=== PATIENT | female | born 1980 | race Caucasian/White ===

== ENCOUNTER 2018-04-21 13:55 | Inpatient (IN) | payer OTHER ==
[2018-04-21] MEDS ORDERED: SODIUM CHLORIDE 0.9% 1,000 ML IV STA ×3 (15:01→16:00)
[2018-04-21] MEDS ORDERED: HYDROCORTISONE SUCCINATE 100 MG/2 ML VIAL IV STA (15:13)
--- NOTE | 2018-04-21 15:20 | ED ---
Recheck HPI - General Source: patient, RN notes reviewed, old records reviewed Mode of arrival: wheelchair Limitations: no limitations <Alisha Valverde - Last Filed: 04/21/18 16:24> <Cecil Jim - Last Filed: 04/21/18 19:58> - General Chief Complaint: Recheck/Abnormal Lab/Rx Stated Complaint: Ware's episode Time Seen by Provider: 04/21/18 14:42 - History of Present Illness Initial Comments: 37-year-old female process return today with chief complaint of general illness. 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 Patient reports that she's been having hot and cold episodes. She denies any other new complaints including cough congestion and URI symptoms. She reports that she typically does with constipation to some stool softeners and now has had some recent diarrhea. She denies abdominal pain. Family states she's been acting more confused. She's been acting lethargic. She does report that she occasionally will miss her medication but missed one dose in the past few days. (Alisha Valverde) - Related Data Home Medications Medication Instructions Recorded Confirmed busPIRone HCl [Buspar] 20 mg PO TID 10/25/15 04/21/18 Fludrocortisone [Florinef] 0.3 mg PO DAILY 04/21/18 04/21/18 Hydrocortisone [Cortef] 10 mg PO BID 04/21/18 04/21/18 Levothyroxine Sodium [Synthroid] 125 mcg PO DAILY 04/21/18 04/21/18 Sodium Chloride Tab 1 gm PO TID PRN 04/21/18 04/21/18 Allergies Allergy/AdvReac Type Severity Reaction Status Date / Time sulfamethoxazole AdvReac Rash/Hives Verified 04/21/18 15:02 [From Bactrim] trimethoprim [From Bactrim] AdvReac Rash/Hives Verified 04/21/18 15:02 Review of Systems ROS Other: All systems not noted in ROS Statement are negative. <Alisha Valverde - Last Filed: 04/21/18 16:24> ROS Other: All systems not noted in ROS Statement are negative. <Cecil Jim - Last Filed: 04/21/18 19:58> ROS Statement: Those systems with pertinent positive or pertinent negative responses have been documented in the HPI. Past Medical History Past Medical History: Thyroid Disorder Additional Past Medical History / Comment(s): hypothyroidism, addisons disease, hypotension History of Any Multi-Drug Resistant Organisms: None Reported Past Surgical History: Appendectomy, Section Past Anesthesia/Blood Transfusion Reactions: Unable to Obtain Additional Past Anesthesia/Blood Transfusion Reaction / Comment(s): CLAUSTERPHOBIA Past Psychological History: Anxiety, Depression Smoking Status: Former smoker Past Alcohol Use History: Occasional Past Drug Use History: None Reported - Past Family History Brother(s) Family Medical History: Seizure Disorder Mother Family Medical History: Unable to Obtain Father Family Medical History: Unable to Obtain <Alisha Valverde - Last Filed: 04/21/18 16:24> General Exam Limitations: no limitations General appearance: alert, in no apparent distress, lethargic Head exam: Present: atraumatic, normocephalic, normal inspection Eye exam: Present: normal appearance, PERRL, EOMI. Absent: scleral icterus, conjunctival injection, periorbital swelling ENT exam: Present: normal exam, mucous membranes moist. Absent: normal oropharynx Neck exam: Present: normal inspection. Absent: tenderness, meningismus, lymphadenopathy Respiratory exam: Present: normal lung sounds bilaterally Cardiovascular Exam: Present: regular rate, normal rhythm, normal heart sounds. Absent: systolic murmur, diastolic murmur, rubs, gallop, clicks GI/Abdominal exam: Present: soft, normal bowel sounds. Absent: distended, tenderness, guarding, rebound, rigid Extremities exam: Present: normal inspection, full ROM, normal capillary refill. Absent: tenderness, pedal edema, joint swelling, calf tenderness Back exam: Present: normal inspection Neurological exam: Present: alert, oriented X3, CN II-XII intact Psychiatric exam: Present: normal affect, normal mood Skin exam: Present: warm, dry, intact. Absent: normal color (10 color consistent with Ware's disease), rash <Alisha Valverde - Last Filed: 04/21/18 16:24> General appearance: alert, in no apparent distress Head exam: Present: atraumatic, normocephalic, normal inspection Eye exam: Present: normal appearance, PERRL, EOMI. Absent: scleral icterus, conjunctival injection, periorbital swelling ENT exam: Present: normal exam, mucous membranes moist Neck exam: Present: normal inspection. Absent: tenderness, meningismus, lymphadenopathy Respiratory exam: Present: normal lung sounds bilaterally. Absent: respiratory distress, wheezes, rales, rhonchi, stridor Cardiovascular Exam: Present: regular rate, normal rhythm, normal heart sounds. Absent: systolic murmur, diastolic murmur, rubs, gallop, clicks GI/Abdominal exam: Present: soft, normal bowel sounds. Absent: distended, tenderness, guarding, rebound, rigid Extremities exam: Present: normal inspection, full ROM, normal capillary refill. Absent: tenderness, pedal edema, joint swelling, calf tenderness Back exam: Present: normal inspection Neurological exam: Present: alert, oriented X3, CN II-XII intact Psychiatric exam: Present: normal affect, normal mood Skin exam: Present: warm, dry, intact, normal color. Absent: rash <Cecil Jim - Last Filed: 04/21/18 19:58> - General Exam Comments Initial Comments: 37-year-old female. Alert and oriented 3. She appears somewhat lethargic. ( Alisha Valverde) Course <Alisha Valverde - Last Filed: 04/21/18 16:24> <Cecil Jim - Last Filed: 04/21/18 19:58> Vital Signs 04/21/18 04/21/18 04/21/18 14:36 15:35 15:55 Temperature 91 F L Pulse Rate 60 52 L 56 L Pulse Rate [ Internal Affairs Investigator ] Respiratory 20 18 18 Rate Blood Pressure 80/60 83/52 78/56 O2 Sat by Pulse 100 98 98 Oximetry 04/21/18 04/21/18 04/21/18 16:13 17:19 17:31 Temperature 91 F L Pulse Rate 55 L 53 L Pulse Rate [ 57 L Internal Affairs Investigator ] Respiratory 18 18 Rate Blood Pressure 84/51 82/68 O2 Sat by Pulse 98 Oximetry 04/21/18 04/21/18 04/21/18 17:34 17:53 18:15 Temperature 91.4 F L 92.1 F L 92.4 F L Pulse Rate 56 L 60 61 Pulse Rate [ Internal Affairs Investigator ] Respiratory 18 18 16 Rate Blood Pressure 88/55 99/84 93/66 O2 Sat by Pulse 100 100 100 Oximetry 04/21/18 04/21/18 04/21/18 18:30 18:50 19:20 Temperature 93.9 F L 94.6 F L 96.2 F L Pulse Rate 64 66 76 Pulse Rate [ Internal Affairs Investigator ] Respiratory 18 18 16 Rate Blood Pressure 103/68 96/61 100/74 O2 Sat by Pulse 100 100 100 Oximetry - Reevaluation(s) Reevaluation #1: 04/21/18 19:58 Medical record is reviewed (Cecil Jim) Reevaluation #2: 04/21/18 19:58 Patient's blood pressure showing significant improvement as well as heart rate in mental status (Cecil Jim) Medical Decision Making - Lab Data Result diagrams: 04/21/18 10:51 04/21/18 10:51 <Alisha Valverde - Last Filed: 04/21/18 16:24> - Lab Data Result diagrams: 04/21/18 10:51 04/21/18 10:51 <Cecil Jim - Last Filed: 04/21/18 19:58> - Medical Decision Making 37 female the ER for evaluation is reviewed and is as disease or disorder coming in with severe hypotension bradycardia weakness and altered mental status. suffered from significant addisonian crisis. Patient placed on thermal blankets with IV warming fluid as well as Reyes fluid. Patient also given steroid treatment as well as IV hydration, dextrose secondary to hypoglycemia. Patient does have improvement in vital signs and mental status ( Cecil Jim) - Lab Data Lab Results 04/21/18 04/21/18 04/21/18 Range/Units 10:51 10:51 10:51 WBC 4.2 (3.8-10.6) k/uL RBC 4.62 (3.80-5.40) m/uL Hgb 13.9 (11.4-16.0) gm/dL Hct 40.8 (34.0-46.0) % MCV 88.3 (80.0-100.0) fL MCH 30.1 (25.0-35.0) pg MCHC 34.1 (31.0-37.0) g/dL RDW 13.3 (11.5-15.5) % Plt Count 251 (150-450) k/uL Neutrophils % 37 % Lymphocytes % 51 % Monocytes % 6 % Eosinophils % 4 % Basophils % 1 % Neutrophils # 1.5 (1.3-7.7) k/uL Lymphocytes # 2.1 (1.0-4.8) k/uL Monocytes # 0.3 (0-1.0) k/uL Eosinophils # 0.2 (0-0.7) k/uL Basophils # 0.0 (0-0.2) k/uL PT 11.9 (9.0-12.0) sec INR 1.1 (<1.2) APTT 30.9 H (22.0-30.0) sec VBG pH (7.31-7.41) VBG pCO2 (37-51) mmHg VBG HCO3 (24-28) mmol/L Sodium 136 L (137-145) mmol/L Potassium 3.8 (3.5-5.1) mmol/L Chloride 105 (98-107) mmol/L Carbon Dioxide 21 L (22-30) mmol/L Anion Gap 10 mmol/L BUN 11 (7-17) mg/dL Creatinine 0.53 (0.52-1.04) mg/dL Est GFR (CKD-EPI)AfAm >90 (>60 ml/min/1.73 sqM) Est GFR (CKD-EPI)NonAf >90 (>60 ml/min/1.73 sqM) Glucose 30 L* (74-99) mg/dL POC Glucose (mg/dL) (75-99) mg/dL POC Glu Cell Cleaner ID Plasma Lactic Acid Trent (0.7-2.0) mmol/L Calcium 9.7 (8.4-10.2) mg/dL Phosphorus (2.5-4.5) mg/dL Magnesium 1.9 (1.6-2.3) mg/dL Total Bilirubin 1.1 (0.2-1.3) mg/dL AST 33 (14-36) U/L ALT 28 (9-52) U/L Alkaline Phosphatase 59 (38-126) U/L Total Protein 7.0 (6.3-8.2) g/dL Albumin 4.3 (3.5-5.0) g/dL Amylase 45 (30-110) U/L Lipase 52 (23-300) U/L TSH (0.465-4.680) mIU/L Free T4 (0.78-2.19) ng/dL Urine Color Urine Appearance (Clear) Urine pH (5.0-8.0) Ur Specific [place] (1.001-1.035) Urine Protein (Negative) Urine Glucose (UA) (Negative) Urine Ketones (Negative) Urine Blood (Negative) Urine Nitrite (Negative) Urine Bilirubin (Negative) Urine Urobilinogen (<2.0) mg/dL Ur Leukocyte Esterase (Negative) 04/21/18 04/21/18 04/21/18 Range/Units 15:15 15:15 16:06 WBC (3.8-10.6) k/uL RBC (3.80-5.40) m/uL Hgb (11.4-16.0) gm/dL Hct (34.0-46.0) % MCV (80.0-100.0) fL MCH (25.0-35.0) pg MCHC (31.0-37.0) g/dL RDW (11.5-15.5) % Plt Count (150-450) k/uL Neutrophils % % Lymphocytes % % Monocytes % % Eosinophils % % Basophils % % Neutrophils # (1.3-7.7) k/uL Lymphocytes # (1.0-4.8) k/uL Monocytes # (0-1.0) k/uL Eosinophils # (0-0.7) k/uL Basophils # (0-0.2) k/uL PT (9.0-12.0) sec INR (<1.2) APTT (22.0-30.0) sec VBG pH (7.31-7.41) VBG pCO2 (37-51) mmHg VBG HCO3 (24-28) mmol/L Sodium (137-145) mmol/L Potassium (3.5-5.1) mmol/L Chloride (98-107) mmol/L Carbon Dioxide (22-30) mmol/L Anion Gap mmol/L BUN (7-17) mg/dL Creatinine (0.52-1.04) mg/dL Est GFR (CKD-EPI)AfAm (>60 ml/min/1.73 sqM) Est GFR (CKD-EPI)NonAf (>60 ml/min/1.73 sqM) Glucose (74-99) mg/dL POC Glucose (mg/dL) 168 H (75-99) mg/dL POC Glu Cell Cleaner ID Michel Dumont Plasma Lactic Acid Trent 0.8 (0.7-2.0) mmol/L Calcium (8.4-10.2) mg/dL Phosphorus 3.8 (2.5-4.5) mg/dL Magnesium (1.6-2.3) mg/dL Total Bilirubin (0.2-1.3) mg/dL AST (14-36) U/L ALT (9-52) U/L Alkaline Phosphatase (38-126) U/L Total Protein (6.3-8.2) g/dL Albumin (3.5-5.0) g/dL Amylase (30-110) U/L Lipase (23-300) U/L TSH 32.600 H (0.465-4.680) mIU/L Free T4 2.01 (0.78-2.19) ng/dL Urine Color Urine Appearance (Clear) Urine pH (5.0-8.0) Ur Specific [place] (1.001-1.035) Urine Protein (Negative) Urine Glucose (UA) (Negative) Urine Ketones (Negative) Urine Blood (Negative) Urine Nitrite (Negative) Urine Bilirubin (Negative) Urine Urobilinogen (<2.0) mg/dL Ur Leukocyte Esterase (Negative) 04/21/18 04/21/18 04/21/18 Range/Units 16:27 16:34 16:47 WBC (3.8-10.6) k/uL RBC (3.80-5.40) m/uL Hgb (11.4-16.0) gm/dL Hct (34.0-46.0) % MCV (80.0-100.0) fL MCH (25.0-35.0) pg MCHC (31.0-37.0) g/dL RDW (11.5-15.5) % Plt Count (150-450) k/uL Neutrophils % % Lymphocytes % % Monocytes % % Eosinophils % % Basophils % % Neutrophils # (1.3-7.7) k/uL Lymphocytes # (1.0-4.8) k/uL Monocytes # (0-1.0) k/uL Eosinophils # (0-0.7) k/uL Basophils # (0-0.2) k/uL PT (9.0-12.0) sec INR (<1.2) APTT (22.0-30.0) sec VBG pH 7.38 (7.31-7.41) VBG pCO2 27 L (37-51) mmHg VBG HCO3 16 L (24-28) mmol/L Sodium (137-145) mmol/L Potassium (3.5-5.1) mmol/L Chloride (98-107) mmol/L Carbon Dioxide (22-30) mmol/L Anion Gap mmol/L BUN (7-17) mg/dL Creatinine (0.52-1.04) mg/dL Est GFR (CKD-EPI)AfAm (>60 ml/min/1.73 sqM) Est GFR (CKD-EPI)NonAf (>60 ml/min/1.73 sqM) Glucose (74-99) mg/dL POC Glucose (mg/dL) 158 H (75-99) mg/dL POC Glu Cell Cleaner ID Michel Dumont Plasma Lactic Acid Trent (0.7-2.0) mmol/L Calcium (8.4-10.2) mg/dL Phosphorus (2.5-4.5) mg/dL Magnesium (1.6-2.3) mg/dL Total Bilirubin (0.2-1.3) mg/dL AST (14-36) U/L ALT (9-52) U/L Alkaline Phosphatase (38-126) U/L Total Protein (6.3-8.2) g/dL Albumin (3.5-5.0) g/dL Amylase (30-110) U/L Lipase (23-300) U/L TSH (0.465-4.680) mIU/L Free T4 (0.78-2.19) ng/dL Urine Color Yellow Urine Appearance Clear (Clear) Urine pH 5.5 (5.0-8.0) Ur Specific [place] 1.014 (1.001-1.035) Urine Protein Negative (Negative) Urine Glucose (UA) 4+ H (Negative) Urine Ketones 3+ H (Negative) Urine Blood Negative (Negative) Urine Nitrite Negative (Negative) Urine Bilirubin Negative (Negative) Urine Urobilinogen <2.0 (<2.0) mg/dL Ur Leukocyte Esterase Negative (Negative) 04/21/18 04/21/18 04/21/18 Range/Units 16:54 17:27 17:53 WBC (3.8-10.6) k/uL RBC (3.80-5.40) m/uL Hgb (11.4-16.0) gm/dL Hct (34.0-46.0) % MCV (80.0-100.0) fL MCH (25.0-35.0) pg MCHC (31.0-37.0) g/dL RDW (11.5-15.5) % Plt Count (150-450) k/uL Neutrophils % % Lymphocytes % % Monocytes % % Eosinophils % % Basophils % % Neutrophils # (1.3-7.7) k/uL Lymphocytes # (1.0-4.8) k/uL Monocytes # (0-1.0) k/uL Eosinophils # (0-0.7) k/uL Basophils # (0-0.2) k/uL PT (9.0-12.0) sec INR (<1.2) APTT (22.0-30.0) sec VBG pH (7.31-7.41) VBG pCO2 (37-51) mmHg VBG HCO3 (24-28) mmol/L Sodium (137-145) mmol/L Potassium (3.5-5.1) mmol/L Chloride (98-107) mmol/L Carbon Dioxide (22-30) mmol/L Anion Gap mmol/L BUN (7-17) mg/dL Creatinine (0.52-1.04) mg/dL Est GFR (CKD-EPI)AfAm (>60 ml/min/1.73 sqM) Est GFR (CKD-EPI)NonAf (>60 ml/min/1.73 sqM) Glucose (74-99) mg/dL POC Glucose (mg/dL) 141 H 103 H 92 (75-99) mg/dL POC Glu Cell Cleaner Maricruz Prado Nicole Murphy, Daniel Plasma Lactic Acid Trent (0.7-2.0) mmol/L Calcium (8.4-10.2) mg/dL Phosphorus (2.5-4.5) mg/dL Magnesium (1.6-2.3) mg/dL Total Bilirubin (0.2-1.3) mg/dL AST (14-36) U/L ALT (9-52) U/L Alkaline Phosphatase (38-126) U/L Total Protein (6.3-8.2) g/dL Albumin (3.5-5.0) g/dL Amylase (30-110) U/L Lipase (23-300) U/L TSH (0.465-4.680) mIU/L Free T4 (0.78-2.19) ng/dL Urine Color Urine Appearance (Clear) Urine pH (5.0-8.0) Ur Specific [place] (1.001-1.035) Urine Protein (Negative) Urine Glucose (UA) (Negative) Urine Ketones (Negative) Urine Blood (Negative) Urine Nitrite (Negative) Urine Bilirubin (Negative) Urine Urobilinogen (<2.0) mg/dL Ur Leukocyte Esterase (Negative) 04/21/18 Range/Units 19:33 WBC (3.8-10.6) k/uL RBC (3.80-5.40) m/uL Hgb (11.4-16.0) gm/dL Hct (34.0-46.0) % MCV (80.0-100.0) fL MCH (25.0-35.0) pg MCHC (31.0-37.0) g/dL RDW (11.5-15.5) % Plt Count (150-450) k/uL Neutrophils % % Lymphocytes % % Monocytes % % Eosinophils % % Basophils % % Neutrophils # (1.3-7.7) k/uL Lymphocytes # (1.0-4.8) k/uL Monocytes # (0-1.0) k/uL Eosinophils # (0-0.7) k/uL Basophils # (0-0.2) k/uL PT (9.0-12.0) sec INR (<1.2) APTT (22.0-30.0) sec VBG pH (7.31-7.41) VBG pCO2 (37-51) mmHg VBG HCO3 (24-28) mmol/L Sodium (137-145) mmol/L Potassium (3.5-5.1) mmol/L Chloride (98-107) mmol/L Carbon Dioxide (22-30) mmol/L Anion Gap mmol/L BUN (7-17) mg/dL Creatinine (0.52-1.04) mg/dL Est GFR (CKD-EPI)AfAm (>60 ml/min/1.73 sqM) Est GFR (CKD-EPI)NonAf (>60 ml/min/1.73 sqM) Glucose (74-99) mg/dL POC Glucose (mg/dL) 91 (75-99) mg/dL POC Glu Cell Cleaner ID Kaelyn Hartmann Plasma Lactic Acid Trent (0.7-2.0) mmol/L Calcium (8.4-10.2) mg/dL Phosphorus (2.5-4.5) mg/dL Magnesium (1.6-2.3) mg/dL Total Bilirubin (0.2-1.3) mg/dL AST (14-36) U/L ALT (9-52) U/L Alkaline Phosphatase (38-126) U/L Total Protein (6.3-8.2) g/dL Albumin (3.5-5.0) g/dL Amylase (30-110) U/L Lipase (23-300) U/L TSH (0.465-4.680) mIU/L Free T4 (0.78-2.19) ng/dL Urine Color Urine Appearance (Clear) Urine pH (5.0-8.0) Ur Specific [place] (1.001-1.035) Urine Protein (Negative) Urine Glucose (UA) (Negative) Urine Ketones (Negative) Urine Blood (Negative) Urine Nitrite (Negative) Urine Bilirubin (Negative) Urine Urobilinogen (<2.0) mg/dL Ur Leukocyte Esterase (Negative) Critical Care Time Critical Care Time: Yes Total Critical Care Time: 95 <Cecil Jim - Last Filed: 04/21/18 19:58> Disposition <Alisha Valverde - Last Filed: 04/21/18 16:24> Is patient prescribed a controlled substance at d/c from ED?: No <Cecil Jim - Last Filed: 04/21/18 19:58> Clinical Impression: Altered mental status, Addisonian crisis, Dehydration, Hypothermia, Hypoglycemia, Hypotension, Bradycardia Disposition: ADMITTED IP TO THIS HOSP Condition: Serious Referrals: Tom Akins MD [Primary Care Provider] - 1-2 days
[2018-04-21 15:38] LABS: Basophils % (A) 1 %; Eosinophils # (A) 0.2 k/uL (0-0.7); Eosinophils % (A) 4 %; HCT 40.8 % (34.0-46.0); HGB 13.9 gm/dL (11.4-16.0); Lymphocytes # (A) 2.1 k/uL (1.0-4.8); Lymphocytes % (A) 51 %; MCH 30.1 pg (25.0-35.0); MCHC 34.1 g/dL (31.0-37.0); MCV 88.3 fL (80.0-100.0); Monocytes # (A) 0.3 k/uL (0-1.0); Monocytes % (A) 6 %; Neutrophils # (A) 1.5 k/uL (1.3-7.7); Neutrophils % (A) 37 %; Platelet Count 251 k/uL (150-450); RBC 4.62 m/uL (3.80-5.40); RDW 13.3 % (11.5-15.5); WBC 4.2 k/uL (3.8-10.6)
[2018-04-21 15:46] LABS: ALT 28 U/L (9-52); AST 33 U/L (14-36); Albumin 4.3 g/dL (3.5-5.0); Alkaline Phosphatase 59 U/L (38-126); Amylase 45 U/L (30-110); Anion Gap 10 mmol/L; Blood Urea Nitrogen 11 mg/dL (7-17); Calcium 9.7 mg/dL (8.4-10.2); Carbon Dioxide 21 mmol/L (22-30); Chloride 105 mmol/L (98-107); Lipase 52 U/L (23-300); Magnesium 1.9 mg/dL (1.6-2.3); Potassium 3.8 mmol/L (3.5-5.1); Sodium 136 mmol/L (137-145); Total Bilirubin 1.1 mg/dL (0.2-1.3)
[2018-04-21 15:47] LABS: INR 1.1 (<1.2); Partial Thromboplastin Time 30.9 sec (22.0-30.0); Prothrombin Time 11.9 sec (9.0-12.0)
[2018-04-21 15:49] LABS: Glucose 30 mg/dL (74-99)
[2018-04-21] MEDS ORDERED: LEVOTHYROXINE IVP 100 MCG/5 ML VIAL IV STA (15:55)
[2018-04-21] MEDS ORDERED: SODIUM CHLORIDE 0.9% 500 ML 500 ML IV STA (16:00)
[2018-04-21] MEDS ORDERED: DEXTROSE 50%-WATER 50 ML SYRINGE IVP STA (16:00)
[2018-04-21 16:09] LABS: Glucose,Whole Blood 168 mg/dL (75-99)
[2018-04-21 16:10] LABS: Phosphorus 3.8 mg/dL (2.5-4.5)
[2018-04-21] MEDS ORDERED: DEXTROSE 5%-0.45% NACL 1,000 ML IV ONE (16:17)
[2018-04-21 16:28] LABS: Glucose,Whole Blood 158 mg/dL (75-99)
[2018-04-21 16:50] LABS: VBG PH 7.38 (7.31-7.41)
[2018-04-21 16:55] LABS: Glucose,Whole Blood 141 mg/dL (75-99)
[2018-04-21 17:29] LABS: Glucose,Whole Blood 103 mg/dL (75-99)
[2018-04-21 17:56] LABS: Glucose,Whole Blood 92 mg/dL (75-99)
[2018-04-21 18:02] LABS: Appearance,Urine Clear (Clear); Bilirubin,Urine Negative (Negative); Blood,Urine Negative (Negative); Color,Urine Yellow; Glucose,Urine (UA) 4+ (Negative); Leukocyte Esterase,Urine Negative (Negative); Nitrite,Urine Negative (Negative); PH, Urine 5.5 (5.0-8.0); Protein,Urine Negative (Negative); Specific Gravity,Urine 1.014 (1.001-1.035); Urobilinogen,Urine <2.0 mg/dL (<2.0)
--- NOTE | 2018-04-21 18:03 | XR ---
EXAMINATION TYPE: XR chest 1V DATE OF EXAM: 04/21/2018 COMPARISON: 01/31/2015 HISTORY: Weakness TECHNIQUE: Single frontal view of the chest is obtained. FINDINGS: Heart and mediastinum are normal. There is mild reticular density in the left lower lobe. The other lung sheth are clear. There is no heart failure. There are chest leads. Bony thorax is int act. IMPRESSION: Minimal reticular density left lower lobe is new compared to old exam. Normal heart.
[2018-04-21 18:09] LABS: Ketones,Urine 3+ (Negative)
[2018-04-21 19:33] LABS: T4, Free (Free Thyroxine) 2.01 ng/dL (0.78-2.19)
[2018-04-21 19:34] LABS: Glucose,Whole Blood 91 mg/dL (75-99)
[2018-04-21] MEDS ORDERED: LACTATED RINGERS 1,000 ML IV SCH (20:00)
[2018-04-21] MEDS: HYDROCORTISONE SUCCINATE 100 MG/2 ML VIAL IV SCH (20:35)
[2018-04-21 21:36] LABS: Glucose,Whole Blood 107 mg/dL (75-99)
[2018-04-21] MEDS ORDERED: SODIUM CHLORIDE TAB 1 GM TAB PO PRN (23:08)
[2018-04-22] MEDS: HYDROCORTISONE SUCCINATE 100 MG/2 ML VIAL IV SCH ×4 (00:07→19:11)
[2018-04-22 00:18] LABS: Glucose,Whole Blood 210 mg/dL (75-99)
[2018-04-22 01:58] VITALS: BMI 21.0
[2018-04-22] MEDS ORDERED: LOPERAMIDE 2 MG CAP PO PRN (02:38)
[2018-04-22 03:05] LABS: Glucose,Whole Blood 265 mg/dL (75-99)
[2018-04-22] MEDS: SODIUM CHLORIDE 0.9% 1,000 ML IV SCH ×3 (03:05→22:26)
[2018-04-22] MEDS: LEVOTHYROXINE 75 MCG TAB PO SCH (05:35)
[2018-04-22 05:57] LABS: Glucose,Whole Blood 279 mg/dL (75-99)
--- NOTE | 2018-04-22 06:16 | HP ---
HISTORY AND PHYSICAL DATE OF SERVICE: 04/21/2018 CHIEF COMPLAINT: Diarrhea, hot and cold episodes and URI symptoms, not feeling well. HISTORY OF PRESENT ILLNESS: This 37-year-old woman with a past medical history of Elmer disease, history of hypothyroidism, history of hypertension, history of Caesarean section, claustrophobia, anxiety, depression being followed by Dr. Akins in the outpatient setting, previously had Elmer crisis. Today the patient is not feeling well. Complaints of diarrhea. Patient also feeling hot and cold and the patient also had some recent diarrhea. Patient came to [facility] and admitted for further evaluation and treatment. The patient was found to be hypothermic with a temperature 94.6 and blood pressure 90/61. Patient was given IV fluids. Patient had warming fluids. Temperature was down to 91 degrees at one point. The patient is was given steroids. The patient improved significantly. Patient admitted to the hospital for further evaluation and treatment. Empiric antibiotics also given. There is no history of fever, rigors or chills. No history of headache, loss of consciousness or seizures. PAST MEDICAL HISTORY: History of hypothyroidism, history of Manchester's disease, hypotension, section, history of claustrophobia. MEDICATIONS: Prior to admission include: 1. Buspirone 20 mg p.o. t.i.d. 2. Sodium chloride tablets 1 g p.o. t.i.d. p.r.n. 3. Levothyroxine 125 mcg. 4. Cortef 10 mg p.o. b.i.d. 5. Florinef 0.3 daily. ALLERGIES: BACTRIM. TRIMETHOPRIM. FAMILY HISTORY: Unable to obtain. SOCIAL HISTORY: Previous history of smoking. Occasional alcohol intake. REVIEW OF SYSTEMS: ENT: No diminished hearing. No diminished vision. CARDIOVASCULAR: As mentioned earlier. RESPIRATORY: As mentioned earlier. GI: As mentioned. : No dysuria. NERVOUS SYSTEM: No numbness or weakness. ALLERGY/IMMUNOLOGY: No asthma or hayfever. MUSCULOSKELETAL: As mentioned earlier. HEMATOLOGY/ONCOLOGY: No history of anemia. ENDOCRINE: As mentioned earlier. CONSTITUTIONAL: As mentioned earlier. Dermatology: Negative. Rheumatology: Negative. Psychiatry: As mentioned earlier. PHYSICAL EXAMINATION: GENERAL: The patient is alert and oriented times three. VITAL SIGNS: Pulse 55, blood pressure 84/50, respiration 18, temperature 91 degrees, pulse ox 98% on room air. HEENT: Conjunctivae normal. Oral mucosa is dry. NECK is no jugular venous distention. No carotid bruit. No lymph node enlargement. Cardiovascular: S1, S2. No S3, no S4. RESPIRATORY: Breath sounds diminished in the bases. A few rhonchi. No crackles. ABDOMEN: Soft, nontender. No mass palpable. Legs no edema. No swelling. NERVOUS SYSTEM: Higher functions as mentioned earlier. Moves all 4 limbs. No focal motor or sensory deficits. LYMPHATICS: No lymph nodes palpable in the neck, axilla or groin. Skin: No ulcer, rash, no bleeding. JOINTS: No active deforming arthropathy. LAB STUDIES: At this time shows Accu-Cheks are 92, 91, 107. CBC within normal limits. ABG, pH of 7.3, sodium 135, potassium 3.8 and glucose 30 32.60, free T4 is 2.01. ASSESSMENT: 1. Diarrhea, hypothermia, hypotension possibly adrenal crisis. 2. Hyponatremia. 3. Hypoglycemia. 4. Elevated TSH with possibly hypothyroidism. 5. History of Manchester's disease. 6. Hypotension. 7. History of section. 8. History of claustrophobia. 9. History of anxiety and depression. 10.Remote history of nicotine dependence. RECOMMENDATIONS AND DISCUSSION: In this 37-year-old woman who presented with multiple complex medical issues, we will monitor the patient closely, continue the current medications, management and symptomatic treatment. Recommend IV fluids, also recommend empiric antibiotics. Increase the dose of levothyroxine, IV Solu-Cortef. We will continue to monitor. DVT prophylaxis. Obtain cultures. The patient might need a higher dose of baseline steroid and glucocorticoid, mineral corticoid supplementation. The patient apparently is in the process of changing the endocrinology to one associated with [facility] Dent according to her. Prognosis guarded. The rest of the home medications were reviewed and discussed with the patient and family. Copy of dictation being forwarded to Dr. Akins who is the primary physician. MMODL / IJN: [id number] / MTDD
[2018-04-22 06:19] LABS: Basophils % (A) 0 %; Eosinophils # (A) 0.1 k/uL (0-0.7); Eosinophils % (A) 2 %; HCT 37.9 % (34.0-46.0); HGB 12.5 gm/dL (11.4-16.0); Lymphocytes # (A) 0.6 k/uL (1.0-4.8); Lymphocytes % (A) 9 %; MCH 29.6 pg (25.0-35.0); MCV 89.7 fL (80.0-100.0); Mean Platelet Volume 6.6; Monocytes # (A) 0.1 k/uL (0-1.0); Monocytes % (A) 2 %; Neutrophils # (A) 5.7 k/uL (1.3-7.7); Neutrophils % (A) 87 %; Platelet Count 231 k/uL (150-450); RBC 4.22 m/uL (3.80-5.40); RDW 13.2 % (11.5-15.5); WBC 6.5 k/uL (3.8-10.6)
[2018-04-22 06:40] LABS: Anion Gap 5 mmol/L; Blood Urea Nitrogen 9 mg/dL (7-17); Calcium 8.7 mg/dL (8.4-10.2); Carbon Dioxide 20 mmol/L (22-30); Chloride 112 mmol/L (98-107); Glucose 284 mg/dL (74-99); Magnesium 1.8 mg/dL (1.6-2.3); Phosphorus 2.4 mg/dL (2.5-4.5); Potassium 3.8 mmol/L (3.5-5.1); Sodium 137 mmol/L (137-145)
[2018-04-22] MEDS ORDERED: FAMOTIDINE 20 MG TAB PO PRN (06:48)
[2018-04-22] MEDS ORDERED: Magnesium Replacement Protocol 1 EACH MISC MISCELLANE PRN (06:53)
[2018-04-22] MEDS ORDERED: Potassium Replacement Protocol 1 EACH MISC MISCELLANE PRN (06:54)
[2018-04-22] MEDS ORDERED: POTASSIUM CHLORIDE ER 20 MEQ TAB.ER PO SCH (07:00)
[2018-04-22 07:13] LABS: Glucose,Whole Blood 295 mg/dL (75-99)
--- NOTE | 2018-04-22 07:30 | P.CNPUL ---
History of Present Illness Consult date: 04/22/18 Chief complaint: Generalized weakness and hypotension History of present illness: This is a 37-year-old female patient with known history of chronic adrenal insufficiency/Elmer's disease who presented to the hospital because of feeling weak and generalized weakness and feeling ill in general. We are not sure what triggered this event, however the patient states that she has been missing her medications including the hydrocortisone that she has to be maintained on a regular basis. Apparently she was having some liquidy stools. No significant cough sputum production chest that is so wheezing. she had altered mentation at the time of arrival. Family stated that the patient was acting confused. She was also lethargic. Yesterday, the patient was seen on the medical floor and following that she was transferred to the intensive care unit due to concerns of adrenal insufficiency/crisis and hypotension. The patient has already received a total of 2.5 L of IV fluid. Cardiology on a maintenance of normal saline at the rate of 150 mL an hour. In the intensive care unit, the patient was placed on hydrocortisone 100 mg every 6 hours. Her blood pressure normalizes. She typically runs a systolic blood pressure in the 90s. That her baseline. I talked to her today. She was fully alert and awake and she was not in any distress. No headache. No neck stiffness. No abdominal pain. No witnessed diarrhea in ICU. I have seen this patient and ICU many years back for a similar presentation. I think it insufficiency his primary. She has also history of hypothyroidism. She claims that she is not having any menstruation for now. She smokes cigarettes. No alcoholism. She smokes marijuana episodically. Her serum bicarbs at 20. Renal function is within normal. White cell count is not elevated. Glucose was as low as 30 and she was treated with dextrose and her most recent blood sugar is at 284. No sore throat. No seizure activity. No other complaints otherwise. In general she is a poor historian. She is followed up by Dr. Villagran and José Review of Systems Constitutional: Reports chronic pain, Reports fatigue, Reports weakness Eyes: denies as per HPI, denies blurred vision, denies bulging eye, denies decreased vision, denies diplopia, denies discharge, denies dry eye, denies irritation, denies itching, denies pain, denies photophobia, denies loss of peripheral vision, denies loss of vision, denies tunnel vision/blind spots Ears: deny: decreased hearing, ear discharge, earache, tinnitus Ears, nose, mouth and throat: Reports as per HPI Breasts: absent: as per HPI, change in shape, gynecomastia, masses, nipple discharge, pain, skin changes, swelling Cardiovascular: Denies chest pain, Denies shortness of breath Respiratory: Reports as per HPI Gastrointestinal: Reports as per HPI, Reports diarrhea Genitourinary: Denies dysuria, Denies hematuria Menstruation: Reports as per HPI Musculoskeletal: Reports as per HPI Musculoskeletal: absent: ankle pain, ankle stiffness, ankle swelling, as per HPI , elbow pain, elbow stiffness, elbow swelling, foot pain, foot stiffness, foot swelling, hand pain, hand stiffness, hand swelling, hip pain, hip stiffness, hip swelling, knee pain, knee stiffness, knee swelling, shoulder pain, shoulder stiffness, shoulder swelling, wrist pain, wrist stiffness, wrist swelling Integumentary: Reports as per HPI Neurological: Reports as per HPI, Reports weakness Psychiatric: Reports as per HPI Endocrine: Reports high blood sugars, Reports low blood sugars Hematologic/Lymphatic: Reports as per HPI Allergic/Immunologic: Reports as per HPI Past Medical History Past Medical History: GERD/Reflux, Thyroid Disorder Additional Past Medical History / Comment(s): hypothyroidism, addisons disease, running anxiety, chronic depression, acid reflux, chronic hypotension History of Any Multi-Drug Resistant Organisms: None Reported Past Surgical History: Appendectomy, Section Past Anesthesia/Blood Transfusion Reactions: No Reported Reaction Additional Past Anesthesia/Blood Transfusion Reaction / Comment(s): CLAUSTERPHOBIA Past Psychological History: Anxiety, Depression Additional Psychological History / Comment(s): LIVES WITH AUNT,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 Smoking Status: Current every day smoker Past Alcohol Use History: Occasional Additional Past Alcohol Use History / Comment(s): STARTED SMOKING AT AGE 15, SMOKED 2.5-3 PPD, QUIT -2015 Past Drug Use History: None Reported, Marijuana - Past Family History Brother(s) Family Medical History: Diabetes Mellitus, Seizure Disorder Mother Family Medical History: No Reported History Father Family Medical History: Myocardial Infarction ([place]) Medications and Allergies Home Medications Medication Instructions Recorded Confirmed Type busPIRone HCl [Buspar] 20 mg PO TID 10/25/15 04/21/18 History Fludrocortisone [Florinef] 0.3 mg PO DAILY 04/21/18 04/21/18 History Hydrocortisone [Cortef] 10 mg PO BID 04/21/18 04/21/18 History Levothyroxine Sodium [Synthroid] 125 mcg PO DAILY 04/21/18 04/21/18 History Sodium Chloride Tab 1 gm PO TID PRN 04/21/18 04/21/18 History Allergies Allergy/AdvReac Type Severity Reaction Status Date / Time sulfamethoxazole AdvReac Rash/Hives Verified 04/21/18 15:02 [From Bactrim] trimethoprim [From Bactrim] AdvReac Rash/Hives Verified 04/21/18 15:02 Physical Exam Vitals: Vital Signs Temp Pulse Pulse Resp BP BP Pulse Ox 04/22/18 07:00 69 17 99/74 96 04/22/18 06:00 83 10 L 99/70 97 04/22/18 05:00 94 12 99/70 98 04/22/18 04:00 98.0 F 87 18 100/69 99 04/22/18 03:40 98.0 F 84 12 100/69 98 04/22/18 02:20 98.3 F 77 04/22/18 00:41 98.0 F 77 18 88/53 100 04/21/18 23:30 82 20 85/53 100 04/21/18 20:20 80 16 95/57 99 04/21/18 20:16 98.2 F 04/21/18 20:00 97.7 F 78 16 91/65 99 04/21/18 19:20 96.2 F L 76 16 100/74 100 04/21/18 18:50 94.6 F L 66 18 96/61 100 04/21/18 18:30 93.9 F L 64 18 103/68 100 04/21/18 18:15 92.4 F L 61 16 93/66 100 04/21/18 17:53 92.1 F L 60 18 99/84 100 04/21/18 17:34 91.4 F L 56 L 18 88/55 100 04/21/18 17:31 57 L 04/21/18 17:19 91 F L 53 L 18 82/68 98 04/21/18 16:13 55 L 18 84/51 04/21/18 15:55 91 F L 56 L 18 78/56 98 04/21/18 15:35 52 L 18 83/52 98 04/21/18 14:36 60 20 80/60 100 Intake and Output 04/21/18 04/22/18 04/22/18 22:59 06:59 14:59 Intake Total 1900 Output Total 475 2200 Balance -475 -300 Intake: IV 900 Sodium Chloride 0.9% 1, 900 000 ml @ 150 mls/hr IV . Q6H40M [facility] Rx#:[id number] Intake, IV Titration 500 Amount Dextrose 5%-0.45% NaCl 1, 500 000 ml @ 100 mls/hr IV . Q10H ONE Rx#:[id number] Oral 500 Output: Urine 475 2200 Uretheral (Reyes) 350 Other: Voiding Method Bedside Commode # Voids 1 Weight 55.5 kg The patient appeared well nourished and normally developed. Vital signs as documented. Head exam is unremarkable. No scleral icterus or corneal arcus noted. Neck is without jugular venous distension, thyromegaly, or carotid bruits. Carotid upstrokes are brisk bilaterally. Lungs are clear to auscultation and percussion. Cardiac exam reveals the PMI to be normally sized and situated. Rhythm is regular. First and second heart sounds normal. No murmurs, rubs or gallops. Abdominal exam reveals normal bowel sounds, no masses , no organomegaly and no aortic enlargement. Extremities are nonedematous and both femoral and pedal pulses are normal. neurologically awake and alert and is no focal neurological deficit. Psychiatric the there is some increased anxiety Results - Laboratory Findings CBC and BMP: 04/22/18 05:59 04/22/18 05:59 PT/INR, D-dimer PT 11.9 sec (9.0-12.0) 04/21/18 10:51 INR 1.1 (<1.2) 04/21/18 10:51 Abnormal lab findings: Abnormal Labs 04/21/18 04/21/18 04/21/18 10:51 10:51 15:15 Lymphocytes # APTT 30.9 H VBG pCO2 VBG HCO3 Sodium 136 L Chloride Carbon Dioxide 21 L Glucose 30 L* POC Glucose (mg/dL) Phosphorus TSH 32.600 H Urine Glucose (UA) Urine Ketones 04/21/18 04/21/18 04/21/18 16:06 16:27 16:34 Lymphocytes # APTT VBG pCO2 27 L VBG HCO3 16 L Sodium Chloride Carbon Dioxide Glucose POC Glucose (mg/dL) 168 H 158 H Phosphorus TSH Urine Glucose (UA) Urine Ketones 04/21/18 04/21/18 04/21/18 16:47 16:54 17:27 Lymphocytes # APTT VBG pCO2 VBG HCO3 Sodium Chloride Carbon Dioxide Glucose POC Glucose (mg/dL) 141 H 103 H Phosphorus TSH Urine Glucose (UA) 4+ H Urine Ketones 3+ H 04/21/18 04/22/18 04/22/18 21:35 00:13 02:53 Lymphocytes # APTT VBG pCO2 VBG HCO3 Sodium Chloride Carbon Dioxide Glucose POC Glucose (mg/dL) 107 H 210 H 265 H Phosphorus TSH Urine Glucose (UA) Urine Ketones 04/22/18 04/22/18 04/22/18 05:45 05:59 05:59 Lymphocytes # 0.6 L APTT VBG pCO2 VBG HCO3 Sodium Chloride 112 H Carbon Dioxide 20 L Glucose 284 H POC Glucose (mg/dL) 279 H Phosphorus 2.4 L TSH Urine Glucose (UA) Urine Ketones 04/22/18 07:02 Lymphocytes # APTT VBG pCO2 VBG HCO3 Sodium Chloride Carbon Dioxide Glucose POC Glucose (mg/dL) 295 H Phosphorus TSH Urine Glucose (UA) Urine Ketones - Diagnostic Findings CT scan - chest: image reviewed Assessment and Plan Plan: Assessment 1 Acute addisonian crisis he had the patient presented with generalized weakness , lethargy, altered mentation, hypotension, hypothermia and hypoglycemia. This can be manifestation of acute adrenal insufficiency. The exact exacerbating or triggering factor is not clear. It's possible the patient has been noncompliant with the medication. No signs of infection or sepsis at this point in time. 2 chronic hypotension, blood pressure is under better control and the patient did not require any pressors. The patient was started on stress dose hydrocortisone the patient was resuscitated adequately with fluids 3 hypoglycemia treated 4 hypothermia treated 5 mental status change, recovered 6 hypothyroidism maintained on thyroid hormone replacement 7 smoker 8 history of marijuana smoking 9 chronic anxiety/depression Plan Continue hydrocortisone for another 24 hours at the same dose. Continue IV fluids and cut it down to 75 mL an hour. Monitor the blood sugar and put the patient on sliding scale coverage. Resume outpatient medication including the thyroid hormone and the patient is on levothyroxine 125 g daily basis. Restart Florinef. Restart BuSpar. The patient is hemodynamically stable. The patient can be chest at the medical surgical floor to be followed up by the medical team. No active continued care issue at this point in time. Mental status is recovered. Hemodynamically stable. We'll check a urine drug screen also.
[2018-04-22] MEDS: INSULIN ASPART (NovoLOG) 100 UNIT/ML VIAL SQ SCH ×4 (07:53→22:25)
[2018-04-22 07:54] LABS: Glucose,Whole Blood 267 mg/dL (75-99)
[2018-04-22] MEDS: busPIRone HCl 10 MG TAB PO SCH ×3 (08:39→22:22)
[2018-04-22] MEDS: ENOXAPARIN 40 MG/0.4 ML SYRINGE SQ SCH (08:39)
[2018-04-22] MEDS ORDERED: LEVOTHYROXINE IVP 100 MCG/5 ML VIAL IV SCH (09:00)
[2018-04-22] MEDS ORDERED: PANTOPRAZOLE 40 MG/10 ML VIAL IV SCH (09:00)
[2018-04-22 09:39] LABS: Appearance,Urine Clear (Clear); Bilirubin,Urine Negative (Negative); Blood,Urine Negative (Negative); Color,Urine Colorless; Glucose,Urine (UA) 4+ (Negative); Ketones,Urine 1+ (Negative); Leukocyte Esterase,Urine Negative (Negative); Nitrite,Urine Negative (Negative); Protein,Urine Negative (Negative); Specific Gravity,Urine 1.009 (1.001-1.035); Urobilinogen,Urine <2.0 mg/dL (<2.0)
[2018-04-22] MEDS: MAGNESIUM SULFATE-D5W PMX 1 GM in DEXTROSE/WATER 1 100ML.BAG IVPB SCH ×2 (10:26→12:07)
[2018-04-22] MEDS ORDERED: ALPRAZolam 0.25 MG TAB PO STA (10:42)
--- NOTE | 2018-04-22 12:03 | ECHOF ---
Referral Reason:hypotension MEASUREMENTS -------- HEIGHT: 157.5 cm WEIGHT: 55.3 kg BP: 98/71 RVIDd: 2.1 cm (< 3.3) IVSd: 0.8 cm (0.6 - 1.1) LVIDd: 4.3 cm (3.9 - 5.3) LVPWd: 0.8 cm (0.6 - 1.1) IVSs: 1.0 cm LVIDs: 2.7 cm LVPWs: 1.0 cm LAESV Index (A-L): 22.91 ml/m Ao Diam: 3.1 cm (2.0 - 3.7) AV Cusp: 1.7 cm (1.5 - 2.6) LA Diam: 2.2 cm (2.7 - 3.8) MV E Mike: 1.16 m/s MV DecT: 249 ms MV A Mike: 0.96 m/s MV E/A Ratio: 1.22 RAP: 5.00 mmHg RVSP: 9.41 mmHg MV EF SLOPE: 106.46 mm/s (70 - 150) MV EXCURSION: 1.05 cm (> 18.000) FINDINGS -------- Sinus rhythm. This was a technically good study. The left ventricular size is normal. Left ventricular wall thickness is normal. Overall left vent ricular systolic function is normal with, an EF between 55 - 60 %. The right ventricle is normal in size and function. Normal LA size by volume 22+/-6 ml/m2. The right atrium is normal in size. The aortic valve is trileaflet, and appears structurally normal. No aortic stenosis or regurgitation. The mitral valve leaflets are mildly thickened. There is trace mitral regurgitation. Trace tricuspid regurgitation present. Right ventricular systolic pressure is normal at < 35 mmHg. There is no evidence of pulmonary hypertension. The pulmonic valve was not well visualized. The aortic root size is normal. Normal inferior vena cava with normal inspiratory collapse consistent with estimated right atrial pre ssure of 5 mmHg. There is a trivial pericardial effusion present. CONCLUSIONS -------- 1. Sinus rhythm. 2. This was a technically good study. 3. The left ventricular size is normal. 4. Left ventricular wall thickness is normal. 5. Overall left ventricular systolic function is normal with, an EF between 55 - 60 %. 6. Normal LA size by volume 22+/-6 ml/m2. 7. The aortic valve is trileaflet, and appears structurally normal. No aortic stenosis or regurgitati on. 8. The mitral valve leaflets are mildly thickened. 9. There is trace mitral regurgitation. 10. Trace tricuspid regurgitation present. 11. Right ventricular systolic pressure is normal at < 35 mmHg. 12. There is no evidence of pulmonary hypertension. 13. The pulmonic valve was not well visualized. 14. The aortic root size is normal. 15. There is a trivial pericardial effusion present. INDEPENDENT [employer]IVING INSTRUCTOR: Kelechi Chauhan RDCS
[2018-04-22 12:23] LABS: Glucose,Whole Blood 223 mg/dL (75-99)
[2018-04-22 16:48] LABS: Glucose,Whole Blood 110 mg/dL (75-99)
--- NOTE | 2018-04-22 18:02 | P.HPIM ---
History of Present Illness This is a pleasant 37 years old female with past medical history of GERD, hypothyroidism, Arnold disease, GERD, chronic depression. She presents because of one day of treatment and welts, when patient workup feeling sweaty, called, hypotensive and confused as per mother at bedside. Patient states for 2 days she was not taking her pills because she forgot that. Admission she had also some diarrhea. She was hypothermic with temperature 94.6, hypotensive blood pressure 90/60. Her symptoms improved after administration of the steroids and she was admitted to the hospital for further evaluation and treatment. The patient was seen in the ICU. Patient was started on stress dose of hydrocortisone 100 mg IV every 6 hours. She is content IV fluids. Patient feels better and she more awake and alert. No abdominal pain or chest pain or dyspnea. Review of Systems CONSTITUTIONAL: No fever, no malaise, no fatigue. HEENT: No recent visual problems or hearing problems. Denied any sore throat. CARDIOVASCULAR: No orthopnea, PND, no palpitations, no syncope. PULMONARY: No shortness of breath, no cough, no hemoptysis. GASTROINTESTINAL: No diarrhea, no nausea, no vomiting, no abdominal pain. Normoactive bowel sounds. NEUROLOGICAL: No headaches, no weakness, no numbness. HEMATOLOGICAL: Denies any bleeding or petechiae. GENITOURINARY: Denies any burning micturition, frequency, or urgency. MUSCULOSKELETAL/RHEUMATOLOGICAL: Denies any joint pain, swelling, or any muscle pain. ENDOCRINE: Denies any polyuria or polydipsia. 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 Smoking Status: Current every day smoker Past Alcohol Use History: Occasional Additional Past Alcohol Use History / Comment(s): STARTED SMOKING AT AGE 15, SMOKED 2.5-3 PPD, QUIT Past Drug Use History: None Reported, Marijuana - Past Family History Brother(s) Family Medical History: Diabetes Mellitus, Seizure Disorder Mother Family Medical History: No Reported History Father Family Medical History: Myocardial Infarction ([place]) Medications and Allergies Home Medications Medication Instructions Recorded Confirmed Type busPIRone HCl [Buspar] 20 mg PO TID 10/25/15 04/21/18 History Fludrocortisone [Florinef] 0.3 mg PO DAILY 04/21/18 04/21/18 History Hydrocortisone [Cortef] 10 mg PO BID 04/21/18 04/21/18 History Levothyroxine Sodium [Synthroid] 125 mcg PO DAILY 04/21/18 04/21/18 History Sodium Chloride Tab 1 gm PO TID PRN 04/21/18 04/21/18 History Allergies Allergy/AdvReac Type Severity Reaction Status Date / Time sulfamethoxazole AdvReac Rash/Hives Verified 04/21/18 15:02 [From Bactrim] trimethoprim [From Bactrim] AdvReac Rash/Hives Verified 04/21/18 15:02 Physical Exam Vitals: Vital Signs Temp Pulse Pulse Resp BP BP Pulse Ox 04/22/18 17:00 75 04/22/18 16:00 98.1 F 63 16 86/52 97 04/22/18 15:00 70 12 04/22/18 14:00 75 04/22/18 13:00 68 04/22/18 12:00 77 04/22/18 11:00 85 04/22/18 10:00 75 04/22/18 09:00 64 27 H 04/22/18 08:49 97 04/22/18 08:30 81 12 99 04/22/18 08:00 98.0 F 60 13 87/55 99 04/22/18 07:30 71 19 97 04/22/18 07:00 69 17 99/74 96 04/22/18 06:00 83 10 L 99/70 97 04/22/18 05:00 94 12 99/70 98 04/22/18 04:00 98.0 F 87 18 100/69 99 04/22/18 03:40 98.0 F 84 12 100/69 98 04/22/18 02:20 98.3 F 77 04/22/18 00:41 98.0 F 77 18 88/53 100 04/21/18 23:30 82 20 85/53 100 04/21/18 20:20 80 16 95/57 99 04/21/18 20:16 98.2 F 04/21/18 20:00 97.7 F 78 16 91/65 99 04/21/18 19:20 96.2 F L 76 16 100/74 100 04/21/18 18:50 94.6 F L 66 18 96/61 100 04/21/18 18:30 93.9 F L 64 18 103/68 100 04/21/18 18:15 92.4 F L 61 16 93/66 100 Intake and Output 04/22/18 04/22/18 04/22/18 06:59 14:59 22:59 Intake Total 1900 375 Output Total 2200 1000 Balance -300 -625 Intake: IV 900 225 Sodium Chloride 0.9% 1, 900 225 000 ml @ 75 mls/hr IV . [id number] [facility] Rx#:[id number] Intake, IV Titration 500 150 Amount Dextrose 5%-0.45% NaCl 1, 500 000 ml @ 100 mls/hr IV . Q10H ONE Rx#:[id number] Magnesium Sulfate-D5w Pmx 100 1 gm In Dextrose/Water 1 100ml.bag @ 100 mls/hr IVPB Q1H [facility] Rx#: [id number] cefTRIAXone 1 gm In 50 Sodium Chloride 0.9% 50 ml @ 100 mls/hr IVPB Q24HR [facility] Rx#:[id number] Oral 500 Output: Urine 2200 1000 Other: Voiding Method Bedside Commode Bedside Commode # Voids 1 Weight 55.5 kg GENERAL: The patient is alert and oriented x3, not in any acute distress. Well developed, well nourished. HEENT: Pupils are round and equally reacting to light. EOMI. No scleral icterus. No conjunctival pallor. Normocephalic, atraumatic. No pharyngeal erythema. No thyromegaly. CARDIOVASCULAR: S1 and S2 present. No murmurs, rubs, or gallops. PULMONARY: Chest is clear to auscultation, no wheezing or crackles. ABDOMEN: Soft, nontender, nondistended, normoactive bowel sounds. No palpable organomegaly. MUSCULOSKELETAL: No joint swelling or deformity. EXTREMITIES: No cyanosis, clubbing, or pedal edema. NEUROLOGICAL: Gross neurological examination did not reveal any focal deficits. SKIN: No rashes. Results CBC & Chem 7: 04/22/18 05:59 04/22/18 05:59 Labs: Abnormal Lab Results - Last 24 Hours (Table) 04/21/18 04/21/18 04/22/18 Range/Units 16:47 21:35 00:13 Lymphocytes # (1.0-4.8) k/uL Chloride (98-107) mmol/L Carbon Dioxide (22-30) mmol/L Glucose (74-99) mg/dL POC Glucose (mg/dL) 107 H 210 H (75-99) mg/dL Phosphorus (2.5-4.5) mg/dL Urine Glucose (UA) 4+ H (Negative) Urine Ketones 3+ H (Negative) 04/22/18 04/22/18 04/22/18 Range/Units 02:53 05:45 05:59 Lymphocytes # 0.6 L (1.0-4.8) k/uL Chloride (98-107) mmol/L Carbon Dioxide (22-30) mmol/L Glucose (74-99) mg/dL POC Glucose (mg/dL) 265 H 279 H (75-99) mg/dL Phosphorus (2.5-4.5) mg/dL Urine Glucose (UA) (Negative) Urine Ketones (Negative) 04/22/18 04/22/18 04/22/18 Range/Units 05:59 07:02 07:43 Lymphocytes # (1.0-4.8) k/uL Chloride 112 H (98-107) mmol/L Carbon Dioxide 20 L (22-30) mmol/L Glucose 284 H (74-99) mg/dL POC Glucose (mg/dL) 295 H 267 H (75-99) mg/dL Phosphorus 2.4 L (2.5-4.5) mg/dL Urine Glucose (UA) (Negative) Urine Ketones (Negative) 04/22/18 04/22/18 04/22/18 Range/Units 08:56 12:12 16:35 Lymphocytes # (1.0-4.8) k/uL Chloride (98-107) mmol/L Carbon Dioxide (22-30) mmol/L Glucose (74-99) mg/dL POC Glucose (mg/dL) 223 H 110 H (75-99) mg/dL Phosphorus (2.5-4.5) mg/dL Urine Glucose (UA) 4+ H (Negative) Urine Ketones 1+ H (Negative) Microbiology - Last 24 Hours (Table) 04/22/18 00:40 Urine Culture - Preliminary Urine,Voided Thrombosis Risk Factor Assmnt - Choose All That Apply Any of the Below Risk Factors Present?: No Other Risk Factors: No Other congenital or acquired thrombophilia - If yes, enter type in comment: No Thrombosis Risk Factor Assessment Level: Very Low Risk Assessment and Plan Assessment: Acute addisonian crisis History of [place] disease History of hypothyroidism History of depression/anxiety History of GERD History of section Plan: This is a pleasant 37 years old female who presents with acute addisonian crisis. Continue with steroids at stress dose, IV fluid. Pulmonary/critical care team following the patient.Labs and medication were reviewed.. Continue same treatment. Continue with symptomatic treatment. Resume home medication. Monitor lytes and vitals. DVT and GI prophylaxis. Further recommendations of the clinical course of the patient DVT prophylaxis: Subcutaneous Lovenox GI Prophylaxis: Ppi
[2018-04-22 22:28] LABS: Glucose,Whole Blood 167 mg/dL (75-99)
[2018-04-23] MEDS: HYDROCORTISONE SUCCINATE 100 MG/2 ML VIAL IV SCH ×3 (00:12→12:09)
[2018-04-23] MEDS: LEVOTHYROXINE 75 MCG TAB PO SCH (06:04)
[2018-04-23 07:04] LABS: Glucose,Whole Blood 139 mg/dL (75-99)
[2018-04-23] MEDS: ENOXAPARIN 40 MG/0.4 ML SYRINGE SQ SCH (07:21)
[2018-04-23] MEDS: PANTOPRAZOLE 40 MG TABLET PO SCH (07:21)
[2018-04-23] MEDS: INSULIN ASPART (NovoLOG) 100 UNIT/ML VIAL SQ SCH ×4 (07:22→20:12)
[2018-04-23] MEDS: busPIRone HCl 10 MG TAB PO SCH ×3 (07:42→21:52)
--- NOTE | 2018-04-23 08:05 | CONS ---
CONSULTATION DATE OF SERVICE: 04/22/2018 REASON FOR CONSULTATION: Infection. HISTORY OF PRESENT ILLNESS: The patient is a 37-year-old female with past medical history significant for Tom Green disease presenting to the ER at [facility], history of diarrhea for the patient having episodes of hot and cold. Patient said she has episodes of freezing cold and the next thing she is sweating. She did have mild headache, but no significant urinary symptoms. No chest pain, no shortness of breath. Very minimal cough. Slight nausea but no vomiting and no diarrhea. The patient apparently has been eating and has been is acting confused and lethargic. Apparently the patient has not been taking her medication as prescribed. With these symptoms, the patient was brought into the ER. On arrival to the ER, the patient was hypothermic with a temperature recorded at 91 degrees Fahrenheit. Patient was hypotensive with a blood pressure 80 to 70 systolic. However, no significant tachycardia was noted. Heart rate was slightly on the low side and the patient's white count was normal with no left shift. Patient subsequently has been started on steroids and IV fluids, admitted to the ICU. Infectious Disease was consulted to rule out any infectious etiology. The patient this morning remains to be afebrile and did have overall improvement in symptomatology since the treatment with steroids and the fluid was started. REVIEW OF SYSTEMS: Positive points have been mentioned in HPI. The rest of the systems has been negative. PAST MEDICAL HISTORY: Tom Green disease, hypothyroidism, gastroesophageal reflux disease, anxiety, depression. PAST SURGICAL HISTORY: Appendectomy, . SOCIAL HISTORY: Patient current everyday smoker. Occasionally drinks, admitted to marijuana use. FAMILY HISTORY: Mother with history of diabetes and seizure disorder. Father history of [place]. ALLERGIES: To SULFAMETHOXAZOLE, TRIMETHOPRIM. MEDICATIONS: Include the patient is currently on BuSpar, , Lovenox, Pepcid, Solu-Cortef, NovoLog. Synthroid, Imodium, Protonix. PHYSICAL EXAMINATION: Blood pressure is 92/59 with a pulse of 54, temperature 98, she is 98% on room air. General description is a middle-aged female, lying in bed in no distress. No tachypnea or accessory muscle for respiration use. HEENT: Shows no pallor or scleral icterus. Oral mucosa is extremely dry. No pharyngeal erythema or thrush. NECK: Trachea central, no thyromegaly. LUNGS: Unlabored breathing, clear to auscultation anteriorly. No wheeze or crackles. HEART: S1, S2. Regular rate and rhythm. ABDOMEN: Soft, no tenderness. No guarding or rigidity. EXTREMITIES: No edema of the feet. SKIN EXAMINATION: No rash or mass palpable. NEUROLOGICAL: Patient is awake, alert, oriented x3. Mood and affect normal. LABS: BUN of 9, creatinine 0.54. UA has been negative. Liver enzymes are normal. Electrolytes are normal. Chest x-ray was negative for pneumonia. DIAGNOSTIC IMPRESSION: The patient admitted to the hospital with hypertension, hypothermia, bradycardia, more likely to Tom Green crisis. Clinical suspicion is low for underlying infection in this patient currently with no elevated white count. Does not look toxic and no obvious clinical focus of infection. The patient's chest x-ray reported to be negative. Abdomen was soft. On clinical examination UA was negative and no evidence of any cellulitis or joint swelling. PLAN: 1. Continue with current treatment, including IV fluids and steroids. 2. to continue while waiting for the culture to finalize. However, if the culture is negative, will be discontinued. 3. Will follow up on clinical condition and adjust the medication further if needed. Thank you for this consultation. Will follow this patient along with you. MMODL / IJN: [id number] /
[2018-04-23 09:09] LABS: Basophils % (A) 0 %; Eosinophils # (A) 0.1 k/uL (0-0.7); Eosinophils % (A) 1 %; HCT 33.3 % (34.0-46.0); HGB 11.2 gm/dL (11.4-16.0); Lymphocytes # (A) 1.2 k/uL (1.0-4.8); Lymphocytes % (A) 13 %; MCH 30.3 pg (25.0-35.0); MCHC 33.6 g/dL (31.0-37.0); MCV 90.3 fL (80.0-100.0); Mean Platelet Volume 7.2; Monocytes # (A) 0.4 k/uL (0-1.0); Monocytes % (A) 4 %; Neutrophils % (A) 82 %; Platelet Count 239 k/uL (150-450); RBC 3.69 m/uL (3.80-5.40); WBC 9.7 k/uL (3.8-10.6)
[2018-04-23 09:45] LABS: Anion Gap 7 mmol/L; Blood Urea Nitrogen 7 mg/dL (7-17); Calcium 9.4 mg/dL (8.4-10.2); Carbon Dioxide 23 mmol/L (22-30); Chloride 115 mmol/L (98-107); Glucose 113 mg/dL (74-99); Phosphorus 2.7 mg/dL (2.5-4.5); Potassium 3.7 mmol/L (3.5-5.1); Sodium 145 mmol/L (137-145)
[2018-04-23 11:04] LABS: Glucose,Whole Blood 120 mg/dL (75-99)
[2018-04-23] MEDS: SODIUM CHLORIDE 0.9% 1,000 ML IV SCH (12:26)
[2018-04-23] MEDS ORDERED: HYDROCORTISONE 10 MG TAB PO SCH (13:15)
[2018-04-23] MEDS: FLUDROCORTISONE 0.1 MG TAB PO SCH (14:49)
--- NOTE | 2018-04-23 16:15 | P.PN ---
Subjective This is a pleasant 37 years old female with past medical history of GERD, hypothyroidism, Arnold disease, GERD, chronic depression. She presents because of one day of treatment and welts, when patient workup feeling sweaty, called, hypotensive and confused as per mother at bedside. Patient states for 2 days she was not taking her pills because she forgot that. Admission she had also some diarrhea. She was hypothermic with temperature 94.6, hypotensive blood pressure 90/60. Her symptoms improved after administration of the steroids and she was admitted to the hospital for further evaluation and treatment. The patient was seen in the ICU. Patient was started on stress dose of hydrocortisone 100 mg IV every 6 hours. She is content IV fluids. Patient feels better and she more awake and alert. No abdominal pain or chest pain or dyspnea. 04/23/2018 Patient was transferred out of the ICU to the general medical floor, patient feels better. No abdominal pain or chest pain. No dyspnea. No dizziness and she is tolerating diet. We will stop her high-dose of stress IV steroids and switch her back to her Cortef 10 mg twice a day and hydrocortisone 0.3 mg daily. We will going to monitor her for 24 hours and continue with lower rate IV fluids normal saline at 50 mL/h. I have lung discussion with the patient and mother at bedside patient states to me that her mother and her family will keep her mind to her everyday for her medication and I suggested to use the system for her Smart informed and she agrees as well. Objective - Vital Signs Vital signs: Vital Signs Temp 98.6 F 04/23/18 11:31 Pulse 50 L 04/23/18 15:14 Resp 16 04/23/18 15:14 BP 104/65 04/23/18 11:31 Pulse Ox 98 04/23/18 11:31 Intake & Output 04/22/18 04/23/18 04/23/18 18:59 06:59 18:59 Intake Total 450 1440 1725 Output Total 1600 675 Balance -6287 816 9735 Intake: IV 300 700 800 Sodium Chloride 0.9% 1, 300 700 800 000 ml @ 10 mls/hr IV . Q24H [facility] Rx#:[id number] Intake, IV Titration 150 Amount Magnesium Sulfate-D5w Pmx 100 1 gm In Dextrose/Water 1 100ml.bag @ 100 mls/hr IVPB Q1H [facility] Rx#: [id number] cefTRIAXone 1 gm In 50 Sodium Chloride 0.9% 50 ml @ 100 mls/hr IVPB Q24HR [facility] Rx#:[id number] Oral 740 925 Output: Urine 1600 675 Other: Voiding Method Bedside Commode Bedside Commode Toilet Bedside Commode # Voids 3 3 - Exam GENERAL: The patient is alert and oriented x3, not in any acute distress. Well developed, well nourished. HEENT: Pupils are round and equally reacting to light. EOMI. No scleral icterus. No conjunctival pallor. Normocephalic, atraumatic. No pharyngeal erythema. No thyromegaly. CARDIOVASCULAR: S1 and S2 present. No murmurs, rubs, or gallops. PULMONARY: Chest is clear to auscultation, no wheezing or crackles. ABDOMEN: Soft, nontender, nondistended, normoactive bowel sounds. No palpable organomegaly. MUSCULOSKELETAL: No joint swelling or deformity. EXTREMITIES: No cyanosis, clubbing, or pedal edema. NEUROLOGICAL: Gross neurological examination did not reveal any focal deficits. SKIN: No rashes. - Labs CBC & Chem 7: 04/23/18 07:24 04/23/18 07:24 Labs: Abnormal Lab Results - Last 24 Hours (Table) 04/22/18 04/22/18 04/23/18 Range/Units 16:35 22:16 06:59 RBC (3.80-5.40) m/uL Hgb (11.4-16.0) gm/dL Hct (34.0-46.0) % Neutrophils # (1.3-7.7) k/uL Chloride (98-107) mmol/L Glucose (74-99) mg/dL POC Glucose (mg/dL) 110 H 167 H 139 H (75-99) mg/dL 04/23/18 04/23/18 04/23/18 Range/Units 07:24 07:24 11:03 RBC 3.69 L (3.80-5.40) m/uL Hgb 11.2 L (11.4-16.0) gm/dL Hct 33.3 L (34.0-46.0) % Neutrophils # 8.0 H (1.3-7.7) k/uL Chloride 115 H (98-107) mmol/L Glucose 113 H (74-99) mg/dL POC Glucose (mg/dL) 120 H (75-99) mg/dL Microbiology - Last 24 Hours (Table) 04/22/18 02:40 Stool Culture - Preliminary Stool 04/22/18 00:40 Urine Culture - Final Urine,Voided 04/21/18 23:19 Blood Culture - Preliminary Blood No Growth after 24 hours Assessment and Plan Assessment: Acute addisonian crisis History of Elmer disease History of hypothyroidism History of depression/anxiety History of GERD History of section Plan: This is a pleasant 37 years old female who presents with acute addisonian crisis. Continue with steroids at stress dose, IV fluid. Pulmonary/critical care team following the patient.Labs and medication were reviewed.. Continue same treatment. Continue with symptomatic treatment. Resume home medication. Monitor lytes and vitals. DVT and GI prophylaxis. Further recommendations of the clinical course of the patient DVT prophylaxis: Subcutaneous Lovenox GI Prophylaxis: Ppi
[2018-04-23 17:09] LABS: Glucose,Whole Blood 154 mg/dL (75-99)
--- NOTE | 2018-04-23 18:11 | P.PN ---
Subjective Progress Note Date: 04/23/18 Principal diagnosis: Generalized weakness and hypotension, acute addisonian crisis This is a 37-year-old female patient with known history of chronic adrenal insufficiency/Elmer's disease who presented to the hospital because of feeling weak and generalized weakness and feeling ill in general. We are not sure what triggered this event, however the patient states that she has been missing her medications including the hydrocortisone that she has to be maintained on a regular basis. Apparently she was having some liquidy stools. No significant cough sputum production chest that is so wheezing. she had altered mentation at the time of arrival. Family stated that the patient was acting confused. She was also lethargic. Yesterday, the patient was seen on the medical floor and following that she was transferred to the intensive care unit due to concerns of adrenal insufficiency/crisis and hypotension. The patient has already received a total of 2.5 L of IV fluid. Cardiology on a maintenance of normal saline at the rate of 150 mL an hour. In the intensive care unit, the patient was placed on hydrocortisone 100 mg every 6 hours. Her blood pressure normalizes. She typically runs a systolic blood pressure in the 90s. That her baseline. I talked to her today. She was fully alert and awake and she was not in any distress. No headache. No neck stiffness. No abdominal pain. No witnessed diarrhea in ICU. I have seen this patient and ICU many years back for a similar presentation. I think it insufficiency his primary. She has also history of hypothyroidism. She claims that she is not having any menstruation for now. She smokes cigarettes. No alcoholism. She smokes marijuana episodically. Her serum bicarbs at 20. Renal function is within normal. White cell count is not elevated. Glucose was as low as 30 and she was treated with dextrose and her most recent blood sugar is at 284. No sore throat. No seizure activity. No other complaints otherwise. In general she is a poor historian. She is followed up by Dr. Villagran and José On 2018 patient seen in follow-up on medical surgical floor. She is resting comfortably in bed, no acute distress, vital signs are stable, room air pulse ox is 98%, no shortness of breath. No chest congestion, no phlegm production, blood urine and stool cultures are negative thus far, today's labs have been reviewed and showed white blood cell count of 9.7, hemoglobin of 11.2 , sodium is 145, potassium is 3.7, chloride is 1:15, CO2 is 23, BUN is 7 creatinine 0.5. No acute issues overnight, she continues on empiric antibiotics in the form of Rocephin. No fever or chills. Objective - Vital Signs Vital signs: Vital Signs Temp 98.6 F 04/23/18 11:31 Pulse 50 L 04/23/18 15:14 Resp 16 04/23/18 15:14 BP 104/65 04/23/18 11:31 Pulse Ox 98 04/23/18 11:31 Intake & Output 04/22/18 04/23/18 04/23/18 18:59 06:59 18:59 Intake Total 450 1440 1725 Output Total 1600 675 Balance -7995 198 3972 Intake: IV 300 700 800 Sodium Chloride 0.9% 1, 300 700 800 000 ml @ 10 mls/hr IV . Q24H [facility] Rx#:[id number] Intake, IV Titration 150 Amount Magnesium Sulfate-D5w Pmx 100 1 gm In Dextrose/Water 1 100ml.bag @ 100 mls/hr IVPB Q1H [facility] Rx#: [id number] cefTRIAXone 1 gm In 50 Sodium Chloride 0.9% 50 ml @ 100 mls/hr IVPB Q24HR [facility] Rx#:[id number] Oral 740 925 Output: Urine 1600 675 Other: Voiding Method Bedside Commode Bedside Commode Toilet Bedside Commode # Voids 3 3 - Exam GENERAL EXAM: Alert, active, comfortable in no apparent distress. HEAD: Normocephalic/atraumatic. EYES: Normal reaction of pupils, equal size. Conjunctiva pink, sclera white. NOSE: Clear with pink turbinates. THROAT: No erythema or exudates. NECK: No masses, no JVD, no thyroid enlargement, no adenopathy. CHEST: No chest wall deformity. Symmetrical expansion. LUNGS: Equal air entry with clear breath sounds, no rhonchi, no wheezes CVS: Regular rate and rhythm, normal S1 and S2, no gallops, no murmurs, no rubs ABDOMEN: Soft, nontender. No hepatosplenomegaly, normal bowel sounds, no guarding or rigidity. EXTREMITIES: No clubbing, no edema, no cyanosis, 2+ pulses and upper and lower extremities. MUSCULOSKELETAL: Muscle strength and tone normal. SPINE: No scoliosis or deformity SKIN: No rashes CENTRAL NERVOUS SYSTEM: Alert and oriented -3. No focal deficits, tone is normal in all 4 extremities. PSYCHIATRIC: Alert and oriented -3. Appropriate affect. Intact judgment and insight. - Labs CBC & Chem 7: 04/23/18 07:24 04/23/18 07:24 Labs: Abnormal Lab Results - Last 24 Hours (Table) 04/22/18 04/23/18 04/23/18 Range/Units 22:16 06:59 07:24 RBC 3.69 L (3.80-5.40) m/uL Hgb 11.2 L (11.4-16.0) gm/dL Hct 33.3 L (34.0-46.0) % Neutrophils # 8.0 H (1.3-7.7) k/uL Chloride (98-107) mmol/L Glucose (74-99) mg/dL POC Glucose (mg/dL) 167 H 139 H (75-99) mg/dL 04/23/18 04/23/18 04/23/18 Range/Units 07:24 11:03 17:08 RBC (3.80-5.40) m/uL Hgb (11.4-16.0) gm/dL Hct (34.0-46.0) % Neutrophils # (1.3-7.7) k/uL Chloride 115 H (98-107) mmol/L Glucose 113 H (74-99) mg/dL POC Glucose (mg/dL) 120 H 154 H (75-99) mg/dL Microbiology - Last 24 Hours (Table) 04/22/18 02:40 Stool Culture - Preliminary Stool 04/22/18 00:40 Urine Culture - Final Urine,Voided 04/21/18 23:19 Blood Culture - Preliminary Blood No Growth after 24 hours Assessment and Plan Plan: Assessment: 1 Acute addisonian crisis he had the patient presented with generalized weakness , lethargy, altered mentation, hypotension, hypothermia and hypoglycemia. This can be manifestation of acute adrenal insufficiency. The exact exacerbating or triggering factor is not clear. It's possible the patient has been noncompliant with the medication. No signs of infection or sepsis at this point in time. 2 chronic hypotension, blood pressure is under better control and the patient did not require any pressors. The patient was started on stress dose hydrocortisone the patient was resuscitated adequately with fluids 3 hypoglycemia treated 4 hypothermia treated 5 mental status change, recovered 6 hypothyroidism maintained on thyroid hormone replacement 7 smoker 8 history of marijuana smoking 9 chronic anxiety/depression 10 history of chronic bronchial asthma, unspecified type Plan: Continue current medical treatment, patient is stable, vital signs are stable, metabolic acidosis has resolved. Cultures remain negative thus far, no fever or chills. No acute complaints, no acute events overnight. We'll follow the patient on as-needed basis, anticipate discharge today or tomorrow I performed a history & physical examination of the patient and discussed their management with my nurse practitioner, Jennifer Jimenez. I reviewed the nurse practitioner's note and agree with the documented findings and plan of care. Lung sounds are positive for clear breath sounds. The findings and the impression was discussed with the patient. I attest to the documentation by the nurse practitioner. Time with Patient: Less than 30
[2018-04-23 20:08] LABS: Glucose,Whole Blood 147 mg/dL (75-99)
[2018-04-23] MEDS: HYDROCORTISONE 10 MG TAB PO SCH (20:12)
--- NOTE | 2018-04-23 23:18 | PN ---
PROGRESS NOTE DATE OF SERVICE: 04/23/2018 REASON FOR FOLLOWUP: hypertension. INTERVAL HISTORY: The patient is currently afebrile. The patient is breathing comfortably. Denies having any chest pain or shortness of breath. Very minimal cough. No nausea, no vomiting, no abdominal pain or any diarrhea. PHYSICAL EXAMINATION: Blood pressure is 104/75 with a pulse of 80, temperature 98.6. She is 98% on room air. General description is a middle-aged female lying in bed in no distress. RESPIRATORY SYSTEM: Unlabored breathing. Clear to auscultation anteriorly. HEART: S1, S2. Regular rate and rhythm. ABDOMEN: Soft. No tenderness. LABS: Hemoglobin 11.2, white count 9.7, BUN of 7, creatinine 0.55. DIAGNOSTIC IMPRESSION AND PLAN: Patient admitted to hospital with hypotension, hypothermia, more like [place] syndrome. The patient infection with sepsis. With the cultures negative, no elevated white count, medication can be family present at bedside. Questions were answered. MMODL / IJN: [id number] /
[2018-04-24] MEDS: LEVOTHYROXINE 75 MCG TAB PO SCH (06:05)
[2018-04-24 07:01] LABS: Glucose,Whole Blood 95 mg/dL (75-99)
[2018-04-24 07:42] LABS: Basophils % (A) 0 %; Eosinophils # (A) 0.1 k/uL (0-0.7); Eosinophils % (A) 1 %; HCT 30.4 % (34.0-46.0); Lymphocytes # (A) 2.7 k/uL (1.0-4.8); Lymphocytes % (A) 35 %; MCH 29.3 pg (25.0-35.0); MCHC 32.7 g/dL (31.0-37.0); MCV 89.4 fL (80.0-100.0); Mean Platelet Volume 7.2; Monocytes # (A) 0.4 k/uL (0-1.0); Monocytes % (A) 5 %; Neutrophils # (A) 4.3 k/uL (1.3-7.7); Neutrophils % (A) 57 %; Platelet Count 209 k/uL (150-450); RDW 14.3 % (11.5-15.5); WBC 7.6 k/uL (3.8-10.6)
[2018-04-24 08:09] LABS: Anion Gap 4 mmol/L; Blood Urea Nitrogen 11 mg/dL (7-17); Calcium 8.9 mg/dL (8.4-10.2); Carbon Dioxide 25 mmol/L (22-30); Chloride 114 mmol/L (98-107); Glucose 89 mg/dL (74-99); Phosphorus 2.6 mg/dL (2.5-4.5); Potassium 3.2 mmol/L (3.5-5.1); Sodium 143 mmol/L (137-145)
[2018-04-24] MEDS: SODIUM CHLORIDE 0.9% 1,000 ML IV SCH (08:11)
[2018-04-24] MEDS: INSULIN ASPART (NovoLOG) 100 UNIT/ML VIAL SQ SCH ×4 (08:11→20:50)
[2018-04-24] MEDS ORDERED: Potassium Replacement Protocol 1 EACH MISC MISCELLANE PRN (08:49)
[2018-04-24] MEDS: busPIRone HCl 10 MG TAB PO SCH ×3 (09:38→22:02)
[2018-04-24] MEDS: ENOXAPARIN 40 MG/0.4 ML SYRINGE SQ SCH (09:38)
[2018-04-24] MEDS: FLUDROCORTISONE 0.1 MG TAB PO SCH (09:38)
[2018-04-24] MEDS: POTASSIUM CHLORIDE ER 20 MEQ TAB.ER PO SCH ×2 (09:39→11:37)
[2018-04-24] MEDS: PANTOPRAZOLE 40 MG TABLET PO SCH (09:39)
[2018-04-24] MEDS: HYDROCORTISONE 10 MG TAB PO SCH ×2 (09:39→20:33)
[2018-04-24 11:19] LABS: Glucose,Whole Blood 92 mg/dL (75-99)
[2018-04-24 12:16] VITALS: RESP 16
[2018-04-24] MEDS ORDERED: SODIUM CHLORIDE 0.9% 500 ML 500 ML IV ONE (14:54)
[2018-04-24] MEDS ORDERED: HYDROCORTISONE 10 MG TAB PO ONE (14:54)
--- NOTE | 2018-04-24 17:07 | P.PN ---
Subjective This is a pleasant 37 years old female with past medical history of GERD, hypothyroidism, Arnold disease, GERD, chronic depression. She presents because of one day of treatment and welts, when patient workup feeling sweaty, called, hypotensive and confused as per mother at bedside. Patient states for 2 days she was not taking her pills because she forgot that. Admission she had also some diarrhea. She was hypothermic with temperature 94.6, hypotensive blood pressure 90/60. Her symptoms improved after administration of the steroids and she was admitted to the hospital for further evaluation and treatment. The patient was seen in the ICU. Patient was started on stress dose of hydrocortisone 100 mg IV every 6 hours. She is content IV fluids. Patient feels better and she more awake and alert. No abdominal pain or chest pain or dyspnea. 04/23/2018 Patient was transferred out of the ICU to the general medical floor, patient feels better. No abdominal pain or chest pain. No dyspnea. No dizziness and she is tolerating diet. We will stop her high-dose of stress IV steroids and switch her back to her Cortef 10 mg twice a day and hydrocortisone 0.3 mg daily. We will going to monitor her for 24 hours and continue with lower rate IV fluids normal saline at 50 mL/h. I have lung discussion with the patient and mother at bedside patient states to me that her mother and her family will keep her mind to her everyday for her medication and I suggested to use the system for her Smart informed and she agrees as well. 04/24/2018 Patient felt dizzy a little bit today and she was hypotensive. Her systolic blood pressure was in 80s and 90s, also she was a bit bradycardic. Labs today showing mild hypo-kalemia which is replaced, no further significant abnormality noted in the labs. We will increase the dose of her Cortef to 15 mg twice a day and negative for 1 bolus of normal saline, we'll follow-up her vitals. If the patient keep improving then we can continue with oral medication. Patient was instructed to follow up with her gallery manager within one week and she agrees. Discharge planning in 24-48 hours Objective - Vital Signs Vital signs: Vital Signs Temp 98 F 04/24/18 12:02 Pulse 51 L 04/24/18 16:35 Resp 16 04/24/18 16:35 BP 94/56 04/24/18 12:02 Pulse Ox 96 04/24/18 12:02 Intake & Output 04/23/18 04/24/18 04/24/18 18:59 06:59 18:59 Intake Total 1725 290 Output Total 675 Balance 1725 -385 Intake: IV 800 Sodium Chloride 0.9% 1, 800 000 ml @ 10 mls/hr IV . Q24H [facility] Rx#:[id number] Intake, IV Titration 50 Amount cefTRIAXone 1 gm In 50 Sodium Chloride 0.9% 50 ml @ 100 mls/hr IVPB Q24HR [facility] Rx#:[id number] Oral 925 240 Output: Urine 675 Other: Voiding Method Toilet Toilet Toilet Bedside Commode Bedside Commode Bedside Commode # Voids 3 2 3 - Exam GENERAL: The patient is alert and oriented x3, not in any acute distress. Well developed, well nourished. HEENT: Pupils are round and equally reacting to light. EOMI. No scleral icterus. No conjunctival pallor. Normocephalic, atraumatic. No pharyngeal erythema. No thyromegaly. CARDIOVASCULAR: S1 and S2 present. No murmurs, rubs, or gallops. PULMONARY: Chest is clear to auscultation, no wheezing or crackles. ABDOMEN: Soft, nontender, nondistended, normoactive bowel sounds. No palpable organomegaly. MUSCULOSKELETAL: No joint swelling or deformity. EXTREMITIES: No cyanosis, clubbing, or pedal edema. NEUROLOGICAL: Gross neurological examination did not reveal any focal deficits. SKIN: No rashes. - Labs CBC & Chem 7: 04/24/18 07:25 04/24/18 07:25 Labs: Abnormal Lab Results - Last 24 Hours (Table) 04/23/18 04/23/18 04/24/18 Range/Units 17:08 20:06 07:25 RBC 3.40 L (3.80-5.40) m/uL Hgb 10.0 L (11.4-16.0) gm/dL Hct 30.4 L (34.0-46.0) % Potassium (3.5-5.1) mmol/L Chloride (98-107) mmol/L POC Glucose (mg/dL) 154 H 147 H (75-99) mg/dL 04/24/18 Range/Units 07:25 RBC (3.80-5.40) m/uL Hgb (11.4-16.0) gm/dL Hct (34.0-46.0) % Potassium 3.2 L (3.5-5.1) mmol/L Chloride 114 H (98-107) mmol/L POC Glucose (mg/dL) (75-99) mg/dL Microbiology - Last 24 Hours (Table) 04/21/18 23:19 Blood Culture - Preliminary Blood No Growth after 48 hours 04/22/18 02:40 Stool Culture - Preliminary Stool 04/22/18 00:40 Urine Culture - Final Urine,Voided Assessment and Plan Assessment: Acute addisonian crisis History of Reynolds disease History of hypothyroidism History of depression/anxiety History of GERD History of section Plan: This is a pleasant 37 years old female who presents with acute addisonian crisis. Continue with steroids at stress dose, IV fluid. Pulmonary/critical care team following the patient.Labs and medication were reviewed.. Continue same treatment. Continue with symptomatic treatment. Resume home medication. Monitor lytes and vitals. DVT and GI prophylaxis. Further recommendations of the clinical course of the patient DVT prophylaxis: Subcutaneous Lovenox GI Prophylaxis: Ppi
[2018-04-24 17:39] LABS: Glucose,Whole Blood 108 mg/dL (75-99)
[2018-04-24] MEDS: CALCIUM CARB-VIT D 500MG-200UN 1 EACH TAB PO SCH (18:12)
[2018-04-24 20:14] LABS: Glucose,Whole Blood 96 mg/dL (75-99)
[2018-04-24 20:44] VITALS: TEMP 97.9
[2018-04-24] MEDS ORDERED: POTASSIUM CHLORIDE ER 20 MEQ TAB.ER PO ONE (21:00)
--- NOTE | 2018-04-24 23:19 | PN ---
PROGRESS NOTE DATE OF SERVICE: 04/24/2018. REASON FOR FOLLOW UP: . INTERVAL HISTORY: The patient is currently afebrile. Patient is breathing comfortably. The patient denies any chest pain or shortness of breath. Occasional cough. No nausea, vomiting. No abdominal pain or any diarrhea. PHYSICAL EXAMINATION: Blood pressure 100/53 with a pulse of 53, temperature 97.9. She is 97% on room air. General description is a middle aged female, lying in bed in no distress. Respiratory system: Unlabored breathing. Clear to auscultation with no wheeze or crackles. Heart S1-S2 regular rate and rhythm. ABDOMEN: Abdomen soft, no tenderness. Extremities: No edema of the feet. LABS: Hemoglobin is 10 with white count 7.7, BUN of 11, creatinine 0.59. Blood, urine and stool cultures negative. DIAGNOSTIC IMPRESSION/PLAN: The patient admitted to the hospital with hypothermia, hypertension, more likely . Clinically doubt infectious etiology with all cultures negative. We will discontinue the Rocephin and monitor the patient closely off antibiotic therapy. Continue supportive care. MMODL / IJN: [id number] /
[2018-04-24] MEDS ORDERED: MELATONIN 3 MG TABLET PO SCH (23:45)
[2018-04-25] MEDS: SODIUM CHLORIDE 0.9% 1,000 ML IV SCH (02:13)
[2018-04-25] MEDS: LEVOTHYROXINE 75 MCG TAB PO SCH (05:59)
[2018-04-25 06:28] VITALS: BP 101/62
[2018-04-25 06:55] LABS: Glucose,Whole Blood 101 mg/dL (75-99)
[2018-04-25] MEDS: INSULIN ASPART (NovoLOG) 100 UNIT/ML VIAL SQ SCH ×3 (09:11→17:04)
[2018-04-25] MEDS: ENOXAPARIN 40 MG/0.4 ML SYRINGE SQ SCH (09:13)
[2018-04-25] MEDS: PANTOPRAZOLE 40 MG TABLET PO SCH (09:14)
[2018-04-25] MEDS: FLUDROCORTISONE 0.1 MG TAB PO SCH (09:15)
[2018-04-25] MEDS: busPIRone HCl 10 MG TAB PO SCH ×2 (09:15→17:02)
[2018-04-25] MEDS: HYDROCORTISONE 10 MG TAB PO SCH (09:15)
[2018-04-25] MEDS: CALCIUM CARB-VIT D 500MG-200UN 1 EACH TAB PO SCH ×2 (09:16→17:02)
[2018-04-25 11:02] LABS: Glucose,Whole Blood 107 mg/dL (75-99)
[2018-04-25 17:05] LABS: Glucose,Whole Blood 99 mg/dL (75-99)
--- NOTE | 2018-04-25 17:31 | P.CRDCN ---
History of Present Illness Consult date: 04/25/18 History of present illness: This is a pleasant 37-year-old female patient who was admitted to the hospital a few days ago with acute episodic crisis which was treated successfully. We get involved in the her care because of bradycardia. The patient has been maintaining normal sinus mechanism with a resting heart rate in the 40s and 50s. More importantly she is asymptomatic from the cardiovascular standpoint of view and denies any dizziness or lightheadedness, syncope, chest pain or chest discomfort. The EKG showed sinus rhythm without any ischemic ST or T-wave abnormalities. The echo showed normal LV function without any significant valvular abnormalities. The patient is not on any AV jonathan carlos agents. She does have thyroid disorder. From the cardiac vascular standpoint of view, the patient can be discharged home. I will follow-up with the patient as an outpatient. 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 Smoking Status: Current every day smoker Past Alcohol Use History: Occasional Additional Past Alcohol Use History / Comment(s): STARTED SMOKING AT AGE 15, SMOKED 2.5-3 PPD, QUIT Past Drug Use History: None Reported, Marijuana - Past Family History Brother(s) Family Medical History: Diabetes Mellitus, Seizure Disorder Mother Family Medical History: No Reported History Father Family Medical History: Myocardial Infarction (ID) Medications and Allergies Home Medications Medication Instructions Recorded Confirmed Type Calcium Carb-Vit D 500Mg-200Un 1 each PO BID-W/MEALS #60 tab 04/25/18 Rx [Oscal 500+D] Famotidine [Pepcid] 20 mg PO BID PRN #60 tab 04/25/18 Rx Fludrocortisone [Florinef] 0.3 mg PO DAILY #60 tab 04/25/18 Rx Hydrocortisone 5 mg PO BID #60 tablet 04/25/18 Rx Hydrocortisone [Cortef] 10 mg PO BID #60 tab 04/25/18 Rx Levothyroxine Sodium [Synthroid] 150 mcg PO DAILY@0630 #60 tab 04/25/18 Rx Sodium Chloride Tab 1 gm PO TID PRN #21 tab 04/25/18 Rx busPIRone HCl [Buspar] 20 mg PO TID #15 tab 04/25/18 Rx Allergies Allergy/AdvReac Type Severity Reaction Status Date / Time sulfamethoxazole AdvReac Rash/Hives Verified 04/21/18 15:02 [From Bactrim] trimethoprim [From Bactrim] AdvReac Rash/Hives Verified 04/21/18 15:02 Physical Exam Vitals: Vital Signs Temp Pulse Resp BP Pulse Ox 04/25/18 05:00 97.9 F 46 L 16 101/62 98 04/24/18 23:52 53 L 16 04/24/18 20:43 97.9 F 53 L 16 100/63 97 Intake and Output 04/25/18 04/25/18 04/25/18 06:59 14:59 22:59 Intake Total 150 1000 Balance 150 1000 Intake: Oral 150 1000 Other: Voiding Method Toilet Bedside Commode # Voids 2 3 # Bowel Movements 3 - Constitutional General appearance: no acute distress - Respiratory Respiratory: bilateral: CTA - Cardiovascular Rhythm: regular Heart sounds: normal: S1, S2 Results 04/24/18 07:25 04/25/18 06:39 Comprehensive Metabolic Panel 04/24/18 04/25/18 Range/Units 17:05 06:39 Potassium 3.8 3.9 (3.5-5.1) mmol/L Current Medications Generic Name Dose Route Start Last Admin Trade Name Freq PRN Reason Stop Dose Admin Buspirone HCl 20 mg 04/22/18 09:00 04/25/18 17:02 Buspar PO 20 mg TID AGUSTO Administration Calcium Carbonate 1 each 04/24/18 17:30 04/25/18 17:02 Oscal 500+D PO 1 each BID-W/MEALS AGUSTO Administration Enoxaparin Sodium 40 mg 04/22/18 09:00 04/25/18 09:13 Lovenox SQ 40 mg DAILY AGUSTO Administration Famotidine 20 mg 04/22/18 06:48 04/23/18 07:21 Pepcid PO 20 mg BID PRN Administration Heartburn Fludrocortisone Acetate 0.3 mg 04/23/18 13:15 04/25/18 09:15 Florinef PO 0.3 mg DAILY AGUSTO Administration Hydrocortisone 15 mg 04/24/18 21:00 04/25/18 09:15 Cortef PO 15 mg BID AGUSTO Administration Sodium Chloride 1,000 mls @ 10 mls/hr 04/22/18 03:00 04/25/18 02:13 Saline 0.9% IV Not Given .Q24H AGUSTO Insulin Aspart 0 unit 04/22/18 07:30 04/25/18 17:04 Novolog SQ Not Given ACHS [facility] Protocol Levothyroxine Sodium 150 mcg 04/22/18 06:30 04/25/18 05:59 Synthroid PO 150 mcg DAILY@0630 AGUSTO Administration Loperamide HCl 2 mg 04/22/18 02:38 Imodium PO QID PRN Diarrhea Melatonin 3 mg 04/24/18 23:45 04/25/18 02:12 Melatonin PO Not Given HS [facility] Miscellaneous Information 1 each 04/22/18 06:53 Magnesium Per Protocol MISCELLANE DAILY PRN Per Protocol Protocol Miscellaneous Information 1 each 04/24/18 08:49 Potassium Per Protocol MISCELLANE DAILY PRN Per Protocol Protocol Pantoprazole Sodium 40 mg 04/23/18 09:00 04/25/18 09:14 Protonix PO 40 mg DAILY AGUSTO Administration Intake and Output 04/25/18 04/25/18 04/25/18 06:59 14:59 22:59 Intake Total 150 1000 Balance 150 1000 Intake: Oral 150 1000 Other: Voiding Method Toilet Bedside Commode # Voids 2 3 # Bowel Movements 3 04/24/18 07:25 04/25/18 06:39 Assessment and Plan Assessment: Assessment #1 asymptomatic bradycardia #2 jose david crisis #3 thyroid disorder Plan #1 the patient can be discharged home #2 avoid any AV jonathan carlos agents
[2018-04-25 19:42] VITALS: PULSE 56
== END 2018-04-25 18:44 | disposition home or self-care (01) | DRG 644 ==
LOC: EC 13:55 → 3SCARD 19:57 → 2SICU 04-22 03:39 → 3NMEDONC 04-22 23:33
PROVIDERS: ADMIT Hospitalist; ATTEND Hospitalist
DX: E27.2 Addisonian crisis (principal); E87.1 Hypo-osmolality and hyponatremia; E03.9 Hypothyroidism, unspecified; E16.2 Hypoglycemia, unspecified; E86.0 Dehydration; E87.6 Hypokalemia; F17.210 Nicotine dependence, cigarettes, uncomplicated; F32.9 Major depressive disorder, single episode, unspecified; F40.240 Claustrophobia; I10 Essential (primary) hypertension; J45.909 Unspecified asthma, uncomplicated; K21.9 Gastro-esophageal reflux disease without esophagitis; R00.1 Bradycardia, unspecified; F41.9 Anxiety disorder, unspecified; Z79.890 Hormone replacement therapy; Z79.899 Other long term (current) drug therapy; Z91.14 Patient's other noncompliance with medication regimen; Z88.1 Allergy status to other antibiotic agents; Z88.2 Allergy status to sulfonamides; Z90.49 Acquired absence of other specified parts of digestive tract; Z82.0 Family history of epilepsy and other diseases of the nervous system; Z82.49 Family history of ischemic heart disease and other diseases of the circulatory system; Z83.3 Family history of diabetes mellitus
CPT/HCPCS: 36415; 71045; 80048; 80053; 81003; 82150; 82803; 83605; 83690; 83735; 84100; 84132; 84439; 84443; 84484; 84703; 85025; 85610; 85730; 87040; 87045; 87046; 87086; 87324; 93005; 93306; 96361; 96374; 96375; 96376; 99285

== ENCOUNTER 2024-05-10 21:44 | Inpatient (IN) | payer OTHER ==
--- NOTE | 2024-05-10 22:07 | ED ---
General Adult HPI - General Chief complaint: Altered Mental Status Stated complaint: ams,trouble walking Time Seen by Provider: 05/10/24 21:50 Source: patient, RN notes reviewed, old records reviewed Mode of arrival: wheelchair Limitations: no limitations - History of Present Illness Initial comments: 43-year-old female presenting for evaluation of generalized pain, confusion, vomiting. Patient has history of Ronks's disease and a mother who is with the patient believes she may be in crisis. She has not taken her medication today. Patient is able to answer simple question but is reluctant to give a detailed history due to not feeling well. No reported fever. No upper respiratory symptoms. No focal pain complaints, pain is generalized - Related Data Previous Rx's Medication Instructions Recorded Calcium Carb-Vit D 500Mg-5Mcg 1 each PO BID-W/MEALS #60 tab 04/25/18 [Oscal 500+D 5 Mcg (200 Iu)] Famotidine [Pepcid] 20 mg PO BID PRN #60 tab 04/25/18 Fludrocortisone [Florinef] 0.3 mg PO DAILY #60 tab 04/25/18 Hydrocortisone 5 mg PO BID #60 tablet 04/25/18 Hydrocortisone [Cortef] 10 mg PO BID #60 tab 04/25/18 Levothyroxine Sodium [Synthroid] 150 mcg PO DAILY@0630 #60 tab 04/25/18 Sodium Chloride Tab 1 gm PO TID PRN #21 tab 04/25/18 busPIRone HCl [Buspar] 20 mg PO TID #15 tab 04/25/18 Allergies Allergy/AdvReac Type Severity Reaction Status Date / Time sulfamethoxazole AdvReac Rash/Hives Verified 05/10/24 21:49 [From Bactrim] trimethoprim [From Bactrim] AdvReac Rash/Hives Verified 05/10/24 21:49 Review of Systems ROS Statement: Those systems with pertinent positive or pertinent negative responses have been documented in the HPI. ROS Other: All systems not noted in ROS Statement are negative. Past Medical History Past Medical History: GERD/Reflux, Thyroid Disorder Additional Past Medical History / Comment(s): hypothyroidism, addisons disease, running anxiety, chronic depression, acid reflux, chronic hypotension History of Any Multi-Drug Resistant Organisms: None Reported Past Surgical History: Appendectomy, Section Past Anesthesia/Blood Transfusion Reactions: No Reported Reaction Additional Past Anesthesia/Blood Transfusion Reaction / Comment(s): CLAUSTERPHOBIA Past Psychological History: Anxiety, Depression Past Alcohol Use History: Occasional Past Drug Use History: None Reported, Marijuana - Past Family History Brother(s) Family Medical History: Diabetes Mellitus, Seizure Disorder Mother Family Medical History: No Reported History Father Family Medical History: Myocardial Infarction ([place]) General Exam Limitations: no limitations General appearance: in no apparent distress, lethargic Head exam: Present: atraumatic, normocephalic Eye exam: Present: normal appearance, PERRL ENT exam: Present: mucous membranes dry Respiratory exam: Present: normal lung sounds bilaterally. Absent: respiratory distress, wheezes Cardiovascular Exam: Present: normal rhythm, bradycardia GI/Abdominal exam: Present: soft. Absent: distended Neurological exam: Present: alert. Absent: oriented X3, motor sensory deficit Skin exam: Present: warm, dry, intact Course Vital Signs 05/10/24 05/10/24 21:45 23:11 Temperature 97.8 F 97.6 F Pulse Rate 54 L 74 Respiratory 18 18 Rate Blood Pressure 131/82 114/65 O2 Sat by Pulse 100 97 Oximetry Medical Decision Making - Medical Decision Making Was pt. sent in by a medical professional or institution (, PA, HOSPITAL PLAN ADMINISTRATOR, urgent care, hospital, or retirement...) When possible be specific @ -No Did you speak to anyone other than the patient for history (EMS, parent, family, police, friend...)? What history was obtained from this source @ -No Did you review nursing and triage notes (agree or disagree)? Why? @ -I reviewed and agree with nursing and triage notes Were old charts reviewed (outside hosp., previous admission, EMS record, old EKG, old radiological studies, urgent care reports/EKG's, retirement records)? Report findings @ -No old charts were reviewed Differential Diagnosis (chest pain, altered mental status, abdominal pain women, abdominal pain men, vaginal bleeding, weakness, fever, dyspnea, syncope, headache, dizziness, GI bleed, back pain, seizure, CVA, palpatations, mental health, musculoskeletal)? @ -Not applicable EKG interpreted by me (3pts min.). @Sinus rhythm rate of 60, MS interval 214, QRS duration 106, QTc [address] segment elevation. X-rays interpreted by me (1pt min.). @ -Chest x-ray negative for consolidated pneumonia CT interpreted by me (1pt min.). @ -None done U/S interpreted by me (1pt. min.). @ -None done What testing was considered but not performed or refused? (CT, X-rays, U/S, labs)? Why? @ -None What meds were considered but not given or refused? Why? @ -None Did you discuss the management of the patient with other professionals (professionals i.e. , PA, HOSPITAL PLAN ADMINISTRATOR, lab, RT, psych nurse, mental health social worker, ice guard tester, teacher, account officer, casey saw operator)? Give summary @Dr. Avalos, will accept patient to ICU. Admitted to [facility]. Was smoking cessation discussed for >3mins.? @ -No Was critical care preformed (if so, how long)? @ -[Yes, 35 minutes Were there social determinants of health that impacted care today? How? (Homelessness, low income, unemployed, alcoholism, drug addiction, transportation, low edu. Level, literacy, decrease access to med. care, senior living, rehab)? @ -No Was there de-escalation of care discussed even if they declined (Discuss DNR or withdrawal of care, Hospice)? DNR status @ -No What co-morbidities impacted this encounter? (DM, HTN, Smoking, COPD, CAD, Cancer, CVA, ARF, Chemo, Hep., AIDS, mental health diagnosis, sleep apnea, morbid obesity)? @ -Ronks's disease Was patient admitted / discharged? Hospital course, mention meds given and route, prescriptions, significant lab abnormalities, going to OR and other pertinent info. @ -43-year-old female history of Ronks's disease presenting with nausea, generalized pain, confusion concern for adrenal crisis. Vital signs are stable. Patient is in sinus rhythm. I did perform workup in the emergency department including laboratory testing, CT brain, chest x-ray. Patient is hyponatremic, hypokalemic hypomagnesemic. Blood sugar is low. She is immediately started on hydrocortisone IV given a fluid bolus followed by D5.9. She will receive potassium replacement. Electrolytes will be repeated and monitored closely. The patient is admitted to the ICU with pulmonary critical care and nephrology on consult. Undiagnosed new problem with uncertain prognosis? @ -No Drug Therapy requiring intensive monitoring for toxicity (Heparin, Nitro, Insulin, Cardizem)? @ -No Were any procedures done? @ -No Diagnosis/symptom? @Adrenal crisis Acute, or Chronic, or Acute on Chronic? @ -[Acute Uncomplicated (without systemic symptoms) or Complicated (systemic symptoms)? @ -Complicated Side effects of treatment? @ -[No Exacerbation, Progression, or Severe Exacerbation? @ -No Poses a threat to life or bodily function? How? (Chest pain, USA, NV, pneumonia, PE, COPD, DKA, ARF, appy, cholecystitis, CVA, Diverticulitis, Homicidal, Suicidal, threat to staff... and all critical care pts) @ -Yes, adrenal crisis - Lab Data Result diagrams: 05/10/24 22:36 05/10/24 22:36 Lab Results 05/10/24 05/10/24 05/10/24 Range/Units 22:36 22:36 22:36 WBC 7.1 (3.8-10.6) k/uL RBC 4.35 (3.80-5.40) m/uL Hgb 12.4 (11.4-16.0) gm/dL Hct 36.1 (34.0-46.0) % MCV 83.2 (80.0-100.0) fL MCH 28.5 (25.0-35.0) pg MCHC 34.3 (31.0-37.0) g/dL RDW 12.3 (11.5-15.5) % Plt Count 198 (150-450) k/uL MPV 7.7 Neutrophils % 66 % Lymphocytes % 24 % Monocytes % 5 % Eosinophils % 3 % Basophils % 0 % Neutrophils # 4.7 (1.3-7.7) k/uL Lymphocytes # 1.7 (1.0-4.8) k/uL Monocytes # 0.4 (0-1.0) k/uL Eosinophils # 0.2 (0-0.7) k/uL Basophils # 0.0 (0-0.2) k/uL Hyperchromasia Slight PT 12.2 (10.0-12.5) sec INR 1.1 (<1.2) APTT 30.9 H (22.0-30.0) sec Sodium 119 L* (137-145) mmol/L Potassium 3.3 L (3.5-5.1) mmol/L Chloride 85 L (98-107) mmol/L Carbon Dioxide 21 L (22-30) mmol/L Anion Gap 13 mmol/L BUN 9 (7-17) mg/dL Creatinine 0.43 L (0.52-1.04) mg/dL Est GFR (CKD-EPI)AfAm >90 (>60 ml/min/1.73 sqM) Est GFR (CKD-EPI)NonAf >90 (>60 ml/min/1.73 sqM) Glucose 63 L (74-99) mg/dL POC Glucose (mg/dL) (70-110) mg/dL POC Glu [place]erry Captain ID Plasma Lactic Acid Trent (0.7-2.0) mmol/L Calcium 8.6 (8.4-10.2) mg/dL Magnesium 1.3 L (1.6-2.3) mg/dL Total Bilirubin 1.8 H (0.2-1.3) mg/dL AST 27 (14-36) U/L ALT 17 (4-34) U/L Alkaline Phosphatase 69 (38-126) U/L Troponin I (0.000-0.034) ng/mL Total Protein 6.2 L (6.3-8.2) g/dL Albumin 3.8 (3.5-5.0) g/dL TSH 3.450 (0.465-4.680) mIU/L Influenza Type A (PCR) (Not Detectd) Influenza Type B (PCR) (Not Detectd) RSV (PCR) (Not Detectd) SARS-CoV-2 (PCR) (Not Detectd) 05/10/24 05/10/24 05/10/24 Range/Units 22:36 22:36 22:36 WBC (3.8-10.6) k/uL RBC (3.80-5.40) m/uL Hgb (11.4-16.0) gm/dL Hct (34.0-46.0) % MCV (80.0-100.0) fL MCH (25.0-35.0) pg MCHC (31.0-37.0) g/dL RDW (11.5-15.5) % Plt Count (150-450) k/uL MPV Neutrophils % % Lymphocytes % % Monocytes % % Eosinophils % % Basophils % % Neutrophils # (1.3-7.7) k/uL Lymphocytes # (1.0-4.8) k/uL Monocytes # (0-1.0) k/uL Eosinophils # (0-0.7) k/uL Basophils # (0-0.2) k/uL Hyperchromasia PT (10.0-12.5) sec INR (<1.2) APTT (22.0-30.0) sec Sodium (137-145) mmol/L Potassium (3.5-5.1) mmol/L Chloride (98-107) mmol/L Carbon Dioxide (22-30) mmol/L Anion Gap mmol/L BUN (7-17) mg/dL Creatinine (0.52-1.04) mg/dL Est GFR (CKD-EPI)AfAm (>60 ml/min/1.73 sqM) Est GFR (CKD-EPI)NonAf (>60 ml/min/1.73 sqM) Glucose (74-99) mg/dL POC Glucose (mg/dL) (70-110) mg/dL POC Glu [place] ID Plasma Lactic Acid Trent 0.8 (0.7-2.0) mmol/L Calcium (8.4-10.2) mg/dL Magnesium (1.6-2.3) mg/dL Total Bilirubin (0.2-1.3) mg/dL AST (14-36) U/L ALT (4-34) U/L Alkaline Phosphatase (38-126) U/L Troponin I <0.012 (0.000-0.034) ng/mL Total Protein (6.3-8.2) g/dL Albumin (3.5-5.0) g/dL TSH (0.465-4.680) mIU/L Influenza Type A (PCR) Not Detected (Not Detectd) Influenza Type B (PCR) Not Detected (Not Detectd) RSV (PCR) Not Detected (Not Detectd) SARS-CoV-2 (PCR) Not Detected (Not Detectd) 05/10/24 Range/Units 23:16 WBC (3.8-10.6) k/uL RBC (3.80-5.40) m/uL Hgb (11.4-16.0) gm/dL Hct (34.0-46.0) % MCV (80.0-100.0) fL MCH (25.0-35.0) pg MCHC (31.0-37.0) g/dL RDW (11.5-15.5) % Plt Count (150-450) k/uL MPV Neutrophils % % Lymphocytes % % Monocytes % % Eosinophils % % Basophils % % Neutrophils # (1.3-7.7) k/uL Lymphocytes # (1.0-4.8) k/uL Monocytes # (0-1.0) k/uL Eosinophils # (0-0.7) k/uL Basophils # (0-0.2) k/uL Hyperchromasia PT (10.0-12.5) sec INR (<1.2) APTT (22.0-30.0) sec Sodium (137-145) mmol/L Potassium (3.5-5.1) mmol/L Chloride (98-107) mmol/L Carbon Dioxide (22-30) mmol/L Anion Gap mmol/L BUN (7-17) mg/dL Creatinine (0.52-1.04) mg/dL Est GFR (CKD-EPI)AfAm (>60 ml/min/1.73 sqM) Est GFR (CKD-EPI)NonAf (>60 ml/min/1.73 sqM) Glucose (74-99) mg/dL POC Glucose (mg/dL) 68 L (70-110) mg/dL POC Glu [place]erry Captain ID SELIMOVIC KAM Plasma Lactic Acid Trent (0.7-2.0) mmol/L Calcium (8.4-10.2) mg/dL Magnesium (1.6-2.3) mg/dL Total Bilirubin (0.2-1.3) mg/dL AST (14-36) U/L ALT (4-34) U/L Alkaline Phosphatase (38-126) U/L Troponin I (0.000-0.034) ng/mL Total Protein (6.3-8.2) g/dL Albumin (3.5-5.0) g/dL TSH (0.465-4.680) mIU/L Influenza Type A (PCR) (Not Detectd) Influenza Type B (PCR) (Not Detectd) RSV (PCR) (Not Detectd) SARS-CoV-2 (PCR) (Not Detectd) Critical Care Time Critical Care Time: Yes Total Critical Care Time: 35 Disposition Clinical Impression: Hyponatremia, Addisonian crisis, Adrenal crisis, Hypoglycemia Disposition: ADMITTED IP TO THIS [facility] Condition: Serious Is patient prescribed a controlled substance at d/c from ED?: No Time of Disposition: 01:06
[2024-05-10 22:51] LABS: Basophils % (A) 0 %; Eosinophils # (A) 0.2 k/uL (0-0.7); Eosinophils % (A) 3 %; HCT 36.1 % (34.0-46.0); HGB 12.4 gm/dL (11.4-16.0); Hyperchromasia Slight; Lymphocytes # (A) 1.7 k/uL (1.0-4.8); Lymphocytes % (A) 24 %; MCH 28.5 pg (25.0-35.0); MCHC 34.3 g/dL (31.0-37.0); MCV 83.2 fL (80.0-100.0); Mean Platelet Volume 7.7; Monocytes # (A) 0.4 k/uL (0-1.0); Monocytes % (A) 5 %; Neutrophils # (A) 4.7 k/uL (1.3-7.7); Neutrophils % (A) 66 %; Platelet Count 198 k/uL (150-450); RBC 4.35 m/uL (3.80-5.40); RDW 12.3 % (11.5-15.5); WBC 7.1 k/uL (3.8-10.6)
[2024-05-10] MEDS: SODIUM CHLORIDE 0.9% 1,000 ML IV ONE (22:59)
[2024-05-10] MEDS: HYDROCORTISONE SUCCINATE 100 MG/2 ML VIAL IV STA (23:00)
[2024-05-10 23:01] LABS: INR 1.1 (<1.2); Partial Thromboplastin Time 30.9 sec (22.0-30.0); Prothrombin Time 12.2 sec (10.0-12.5)
[2024-05-10 23:17] LABS: Glucose,Whole Blood 68 mg/dL (70-110)
[2024-05-10 23:27] LABS: Influenza A Not Detected (Not Detectd); Influenza B Not Detected (Not Detectd); RSV Not Detected (Not Detectd)
[2024-05-10 23:37] LABS: ALT 17 U/L (4-34); AST 27 U/L (14-36); African American GFR (CKD) >90 (>60 ml/min/1.73 sqM); Albumin 3.8 g/dL (3.5-5.0); Alkaline Phosphatase 69 U/L (38-126); Anion Gap 13 mmol/L; Blood Urea Nitrogen 9 mg/dL (7-17); Calcium 8.6 mg/dL (8.4-10.2); Carbon Dioxide 21 mmol/L (22-30); Chloride 85 mmol/L (98-107); Glucose 63 mg/dL (74-99); Magnesium 1.3 mg/dL (1.6-2.3); Non-African American GFR(CKD) >90 (>60 ml/min/1.73 sqM); Potassium 3.3 mmol/L (3.5-5.1); Total Bilirubin 1.8 mg/dL (0.2-1.3); Total Protein 6.2 g/dL (6.3-8.2)
[2024-05-10 23:59] LABS: Sodium 119 mmol/L (137-145)
--- NOTE | 2024-05-11 00:28 | CT ---
EXAM: CT Head Without Intravenous Contrast CLINICAL HISTORY: ITS.REASON CT Reason: Altered mental status TECHNIQUE: Axial computed tomography images of the head/brain without intravenous contrast. CTDI is 49.1 mGy and DLP is 1098 mGy-cm. This CT exam was performed using one or more of the following dose reduction techniques: automated exposure control, adjustment of the mA and/or kV according to patient size, and/or use of iterative reconstruction technique. COMPARISON: No relevant prior studies available. FINDINGS: No acute intracranial hemorrhage. No midline shift or mass effect. The territorial mancia-white matter differentiation is maintained throughout. The ventricles and sulci are commensurate with age. The visualized orbits appear grossly unremarkable. The calvarium is intact. The visualized paranasal sinuses and mastoid air cells are grossly clear. IMPRESSION: No acute intracranial hemorrhage, midline shift, or mass effect.
[2024-05-11] MEDS ORDERED: NALOXONE 0.4 MG/ML 1 ML VIAL IV PRN (00:35)
[2024-05-11] MEDS ORDERED: ACETAMINOPHEN TAB 325 MG TAB PO PRN (00:35)
[2024-05-11] MEDS: DEXTROSE 5%-0.9% NACL 1,000 ML IV SCH (00:56)
[2024-05-11] MEDS: MAGNESIUM SULFATE-D5W PMX 1 GM in DEXTROSE/WATER 1 100ML.BAG IVPB SCH (00:57)
[2024-05-11] MEDS: POTASSIUM CHLORIDE 10 MEQ in WATER FOR INJECTION 1 100ML.BAG IVPB SCH (00:58)
--- NOTE | 2024-05-11 01:10 | XR ---
EXAM: XR Chest, 2 Views CLINICAL HISTORY: ITS.REASON XR Reason: altered mental status TECHNIQUE: Frontal and lateral views of the chest. COMPARISON: No relevant prior studies available. FINDINGS: Lungs: Unremarkable. No consolidation. Pleural space: Unremarkable. No pneumothorax. Heart: Unremarkable. No cardiomegaly. Mediastinum: Unremarkable. Bones/joints: Unremarkable. IMPRESSION: No consolidation.
[2024-05-11 02:56] LABS: Appearance,Urine Clear (Clear); Bilirubin,Urine Negative (Negative); Blood,Urine Small (Negative); Color,Urine Colorless; Glucose,Urine (UA) Negative (Negative); Ketones,Urine 4+ (Negative); Leukocyte Esterase,Urine Negative (Negative); Mucus,Urine Rare /hpf; Nitrite,Urine Negative (Negative); PH, Urine 5.5 (5.0-8.0); Protein,Urine Negative (Negative); RBC,Urine 4 /hpf (0-5); Specific Gravity,Urine 1.011 (1.001-1.035); Squamous Epithelial Cell,Urine <1 /hpf (0-4); Urobilinogen,Urine <2.0 mg/dL (<2.0); WBC,Urine 1 /hpf (0-5)
[2024-05-11 02:58] LABS: Amphetamine Screen,Urine Not Detected (NotDetected); Barbiturate Screen,Urine Not Detected (NotDetected); Benzodiazepines Screen,Urine Not Detected (NotDetected); Cocaine Screen,Urine Not Detected (NotDetected); Methadone Screen, Urine Not Detected (NotDetected); Opiate Screen,Urine Not Detected (NotDetected); Oxycodone Screen, Urine Not Detected (NotDetected); Phencyclidine Screen,Urine Not Detected (NotDetected); Tricyclic Antidepressant,Urine Not Detected (NotDetected); Urn Cannabinoid Scrn Detected (NotDetected)
[2024-05-11 03:32] LABS: Basophils % (A) 0 %; Eosinophils # (A) 0.2 k/uL (0-0.7); Eosinophils % (A) 2 %; HCT 37.1 % (34.0-46.0); HGB 12.9 gm/dL (11.4-16.0); Lymphocytes # (A) 1.1 k/uL (1.0-4.8); Lymphocytes % (A) 11 %; MCH 29.3 pg (25.0-35.0); MCHC 34.9 g/dL (31.0-37.0); MCV 83.9 fL (80.0-100.0); Mean Platelet Volume 8.1; Monocytes # (A) 0.6 k/uL (0-1.0); Monocytes % (A) 6 %; Neutrophils # (A) 8.1 k/uL (1.3-7.7); Neutrophils % (A) 81 %; Platelet Count 181 k/uL (150-450); RBC 4.42 m/uL (3.80-5.40); RDW 12.3 % (11.5-15.5)
[2024-05-11] MEDS: LORazepam 2 MG/ML INJ IV STA (04:00)
[2024-05-11 04:14] LABS: ALT 17 U/L (4-34); AST 27 U/L (14-36); African American GFR (CKD) >90 (>60 ml/min/1.73 sqM); Albumin 3.8 g/dL (3.5-5.0); Alkaline Phosphatase 82 U/L (38-126); Anion Gap 14 mmol/L; Blood Urea Nitrogen 8 mg/dL (7-17); Calcium 8.5 mg/dL (8.4-10.2); Carbon Dioxide 17 mmol/L (22-30); Chloride 89 mmol/L (98-107); Glucose 85 mg/dL (74-99); Non-African American GFR(CKD) >90 (>60 ml/min/1.73 sqM); Potassium 3.3 mmol/L (3.5-5.1); Sodium 120 mmol/L (137-145); Total Bilirubin 1.8 mg/dL (0.2-1.3); Total Protein 6.2 g/dL (6.3-8.2)
[2024-05-11] MEDS: SODIUM CHLORIDE 0.9% 1,000 ML IV ONE (05:22)
[2024-05-11] MEDS: HYDROCORTISONE SUCCINATE 100 MG/2 ML VIAL IV SCH ×2 (06:36→16:34)
[2024-05-11] MEDS: LEVOTHYROXINE 75 MCG TAB PO SCH (07:10)
[2024-05-11 08:41] LABS: Basophils % (A) 0 %; Eosinophils % (A) 1 %; HCT 39.9 % (34.0-46.0); HGB 13.6 gm/dL (11.4-16.0); Lymphocytes # (A) 0.7 k/uL (1.0-4.8); Lymphocytes % (A) 11 %; MCH 29.2 pg (25.0-35.0); MCV 85.9 fL (80.0-100.0); Monocytes # (A) 0.1 k/uL (0-1.0); Monocytes % (A) 2 %; Neutrophils # (A) 5.1 k/uL (1.3-7.7); Neutrophils % (A) 86 %; Platelet Count 230 k/uL (150-450); RBC 4.64 m/uL (3.80-5.40); RDW 12.5 % (11.5-15.5); WBC 5.9 k/uL (3.8-10.6)
[2024-05-11 08:52] LABS: ALT 19 U/L (4-34); AST 28 U/L (14-36); African American GFR (CKD) >90 (>60 ml/min/1.73 sqM); Albumin 4.6 g/dL (3.5-5.0); Alkaline Phosphatase 95 U/L (38-126); Anion Gap 16 mmol/L; Blood Urea Nitrogen 5 mg/dL (7-17); Carbon Dioxide 18 mmol/L (22-30); Chloride 94 mmol/L (98-107); Glucose 92 mg/dL (74-99); Magnesium 1.9 mg/dL (1.6-2.3); Non-African American GFR(CKD) >90 (>60 ml/min/1.73 sqM); Sodium 128 mmol/L (137-145); Total Bilirubin 1.8 mg/dL (0.2-1.3); Total Protein 7.3 g/dL (6.3-8.2)
[2024-05-11 09:52] LABS: T4, Free (Free Thyroxine) 1.74 ng/dL (0.78-2.19)
[2024-05-11] MEDS: FLUDROCORTISONE 0.1 MG TAB PO SCH (10:20)
[2024-05-11] MEDS ORDERED: ALBUTEROL NEBULIZED 2.5 MG/3 ML INHALATION PRN (13:34)
[2024-05-11] MEDS ORDERED: FAMOTIDINE 20 MG TAB PO PRN (13:34)
[2024-05-11] MEDS: PANTOPRAZOLE 40 MG/10 ML VIAL IVP SCH (14:59)
[2024-05-11] MEDS: SODIUM CHLORIDE 0.9% 1,000 ML IV SCH ×2 (14:59→15:55)
--- NOTE | 2024-05-11 15:17 | P.CNPUL ---
History of Present Illness Consult date: 05/11/24 Requesting physician: Summer Tom Reason for consult: other (Adrenal crisis) Chief complaint: Generalized pain, confusion, vomiting History of present illness: This is a 43-year-old female with history of chronic adrenal insufficiency/Elmer's disease, patient presented to the hospital last night with 1 day history of feeling weak, generalized aches and pains, not feeling well, with intermittent episodes of nausea and vomiting. Not certain what triggered this event, apparently the patient has not been compliant with her medications/hydrocortisone, on her initial evaluation in the ER, patient was noted to be hypotensive, required significant fluid boluses but did not require placement on norepinephrine. Patient had negative drug screen except positive for marijuana. Patient was noted to have profound hyponatremia, sodium as low as 119, potassium was 3.3, patient was also noted to have slight anion gap metabolic acidosis ranging between 13-16. Patient received stress doses of h ydrocortisone she also received multiple fluid boluses upon her initial arrival, and she was supposed to be admitted to the ICU. However when I evaluated the patient in the morning, her labs were showing significant improvement, her blood pressure was noted to be stable, patient is already on high doses/stress dose of hydrocortisone, her T4 and TSH were noted to be normal, hence I recommended that the patient remains on stress doses of hydrocortisone, and the patient could be admitted to the floor. She will likely be admitted to 3 S. Patient had viral screen which all came back negative, and based on her clinical history no clear- cut evidence of infection. Patient is now on hydrocortisone at 100 mg IV push every 8 hours she is also on Florinef 0.3 mg p.o. daily, and back on her usual l evothyroxine dose. Review of Systems Review of Systems Constitutional: Weakness and pain as well as nausea and vomiting Eyes: Negative Ears: Negative Ears, nose, mouth and throat: Negative Cardiovascular: Negative Respiratory: Negative Gastrointestinal: Mostly nausea and vomiting no abdominal pain Genitourinary: No dysuria frequency or urgency Musculoskeletal: Vague aches and pains Integumentary: Negative Neurological: Mostly weakness Psychiatric: Negative Endocrine: Patient is known to have history of adrenal insufficiency/[place]'s disease Hematologic/Lymphatic: Negative Past Medical History Past Medical History: GERD/Reflux, Thyroid Disorder Additional Past Medical History / Comment(s): hypothyroidism, addisons disease, running anxiety, chronic depression, acid reflux, chronic hypotension History of Any Multi-Drug Resistant Organisms: None Reported Past Surgical History: Appendectomy, Section Past Anesthesia/Blood Transfusion Reactions: No Reported Reaction Additional Past Anesthesia/Blood Transfusion Reaction / Comment(s): CLAUSTERPHOBIA Past Psychological History: Anxiety, Depression Past Alcohol Use History: Occasional Past Drug Use History: None Reported, Marijuana - Past Family History Brother(s) Family Medical History: Diabetes Mellitus, Seizure Disorder Mother Family Medical History: No Reported History Father Family Medical History: Myocardial Infarction ([place]) Medications and Allergies Home Medications Medication Instructions Recorded Confirmed Type Famotidine [Pepcid] 20 mg PO BID PRN #60 tab 04/25/18 05/11/24 Rx Albuterol Inhaler [Ventolin Hfa 2 puff INHALATION RT-Q6H PRN 05/11/24 05/11/24 History Inhaler] Fludrocortisone [Florinef] 0.15 mg PO DAILY 05/11/24 05/11/24 History Hydrocortisone 5 mg PO DAILY@1400 05/11/24 05/11/24 History Hydrocortisone [Cortef] 10 mg PO DAILY 05/11/24 05/11/24 History Levothyroxine Sodium [Synthroid] 75 mcg PO Q48H 05/11/24 05/11/24 History Levothyroxine Sodium [Synthroid] 150 mcg PO Q48H 05/11/24 05/11/24 History Allergies Allergy/AdvReac Type Severity Reaction Status Date / Time sulfamethoxazole AdvReac Rash/Hives Verified 05/11/24 07:34 [From Bactrim] trimethoprim [From Bactrim] AdvReac Rash/Hives Verified 05/11/24 07:34 Physical Exam Vitals: Vital Signs Temp Pulse Resp BP Pulse Ox 05/11/24 15:00 92 18 93/59 98 05/11/24 11:18 86 18 92/58 96 05/11/24 10:19 73 18 99/55 98 05/11/24 09:02 67 18 86/51 98 05/11/24 07:53 99.2 F 72 18 115/73 100 05/11/24 06:00 98.3 F 58 L 16 116/58 100 05/11/24 04:00 98.3 F 80 18 84/55 100 05/11/24 03:26 61 18 103/59 100 05/11/24 03:03 57 L 18 97/79 05/11/24 02:57 97.7 F 58 L 18 86/48 99 05/11/24 01:38 57 L 18 101/77 100 05/11/24 01:23 54 L 86/49 99 05/11/24 01:00 57 L 74/47 98 05/10/24 23:11 97.6 F 74 18 114/65 97 05/10/24 21:45 97.8 F 54 L 18 131/82 100 GENERAL: Revealed 44-year-old female in no distress Head: Atraumatic, normocephalic HEENT: Pupils are round and equally reacting to light. EOMI. No scleral icterus. No conjunctival pallor. Normocephalic, atraumatic. No pharyngeal erythema. No thyromegaly. CARDIOVASCULAR: S1 and S2 present. No murmurs, rubs, or gallops. PULMONARY: Symmetrical chest expansion clear throughout no crackles rhonchi or wheezes ABDOMEN: Soft, nontender, nondistended, normoactive bowel sounds. No palpable organomegaly. MUSCULOSKELETAL: No joint swelling or deformity. EXTREMITIES: No cyanosis, clubbing, or pedal edema. NEUROLOGICAL: Alert and oriented x 3 no gross focal deficit Psychiatric: Normal mood affect and no mental status examination SKIN: No rashes. Results - Laboratory Findings CBC and BMP: 05/11/24 08:06 05/11/24 08:06 PT/INR, D-dimer PT 12.2 sec (10.0-12.5) 05/10/24 22:36 INR 1.1 (<1.2) 05/10/24 22:36 Abnormal lab findings: Abnormal Labs 05/10/24 05/10/24 05/10/24 22:36 22:36 23:16 Neutrophils # Lymphocytes # APTT 30.9 H Sodium 119 L* Potassium 3.3 L Chloride 85 L Carbon Dioxide 21 L BUN Creatinine 0.43 L Glucose 63 L POC Glucose (mg/dL) 68 L Magnesium 1.3 L Total Bilirubin 1.8 H Total Protein 6.2 L Urine Ketones Urine Blood Urine Mucus U Marijuana (THC) Screen 05/11/24 05/11/24 05/11/24 02:19 02:19 03:05 Neutrophils # 8.1 H Lymphocytes # APTT Sodium Potassium Chloride Carbon Dioxide BUN Creatinine Glucose POC Glucose (mg/dL) Magnesium Total Bilirubin Total Protein Urine Ketones 4+ H Urine Blood Small H Urine Mucus Rare H U Marijuana (THC) Screen Detected H 05/11/24 05/11/24 05/11/24 03:05 08:06 08:06 Neutrophils # Lymphocytes # 0.7 L APTT Sodium 120 L 128 L Potassium 3.3 L Chloride 89 L 94 L Carbon Dioxide 17 L 18 L BUN 5 L Creatinine 0.45 L 0.46 L Glucose POC Glucose (mg/dL) Magnesium Total Bilirubin 1.8 H 1.8 H Total Protein 6.2 L Urine Ketones Urine Blood Urine Mucus U Marijuana (THC) Screen - Diagnostic Findings Chest x-ray: image reviewed (Chest x-ray showed no evidence of any infiltrate or consolidation) Assessment and Plan Assessment: Impression: Acute addisonian crisis History of [place] disease History of hypothyroidism History of depression/anxiety History of GERD History of section Hyponatremia secondary to adrenal insufficiency Hypoglycemia secondary to adrenal insufficiency Recommendation: Continue present supportive care measures Continue IV fluids and closely monitor electrolytes including sodium and potassium Resume home meds including levothyroxine for her hypothyroidism GI and DVT prophylaxis Resume Florinef Continue hydrocortisone 100 mg IV push every 8 hours Will continue to follow No need to admit to ICU at this point. Time with Patient: Greater than 30
--- NOTE | 2024-05-11 15:37 | P.NPCON ---
History of Present Illness - Reason for Consult hyponatremia - History of Present Illness Patient is a 43-year-old female with history of [place]'s disease who was admitted to the hospital with complaints of increased weakness, aches and pains. Patient stated that she felt she was going into adrenal crisis. She denies any history of fever chills nausea vomiting abdominal pain or diarrhea. No other sick contacts per patient. She was noted to be significantly hypotensive with blood pressure in the 70s. She received IV fluid boluses and states that she is feeling much better now. Serum sodium was 119 on admission and improved to 128 this morning. Patient is tolerating oral intake. Urine drug screen tested positive for marijuana Past Medical History Past Medical History: GERD/Reflux, Thyroid Disorder Additional Past Medical History / Comment(s): hypothyroidism, addisons disease, running anxiety, chronic depression, acid reflux, chronic hypotension History of Any Multi-Drug Resistant Organisms: None Reported Past Surgical History: Appendectomy, Section Past Anesthesia/Blood Transfusion Reactions: No Reported Reaction Additional Past Anesthesia/Blood Transfusion Reaction / Comment(s): CLAUSTERPHOBIA Past Psychological History: Anxiety, Depression Past Alcohol Use History: Occasional Past Drug Use History: None Reported, Marijuana - Past Family History Brother(s) Family Medical History: Diabetes Mellitus, Seizure Disorder Mother Family Medical History: No Reported History Father Family Medical History: Myocardial Infarction ([place]) Medications and Allergies Home Medications Medication Instructions Recorded Confirmed Type Famotidine [Pepcid] 20 mg PO BID PRN #60 tab 04/25/18 05/11/24 Rx Albuterol Inhaler [Ventolin Hfa 2 puff INHALATION RT-Q6H PRN 05/11/24 05/11/24 History Inhaler] Fludrocortisone [Florinef] 0.15 mg PO DAILY 05/11/24 05/11/24 History Hydrocortisone 5 mg PO DAILY@1400 05/11/24 05/11/24 History Hydrocortisone [Cortef] 10 mg PO DAILY 05/11/24 05/11/24 History Levothyroxine Sodium [Synthroid] 75 mcg PO Q48H 05/11/24 05/11/24 History Levothyroxine Sodium [Synthroid] 150 mcg PO Q48H 05/11/24 05/11/24 History Allergies Allergy/AdvReac Type Severity Reaction Status Date / Time sulfamethoxazole AdvReac Rash/Hives Verified 05/11/24 07:34 [From Bactrim] trimethoprim [From Bactrim] AdvReac Rash/Hives Verified 05/11/24 07:34 Physical Exam Vitals: Vital Signs Temp Pulse Resp BP Pulse Ox 05/11/24 15:00 92 18 93/59 98 05/11/24 11:18 86 18 92/58 96 05/11/24 10:19 73 18 99/55 98 05/11/24 09:02 67 18 86/51 98 05/11/24 07:53 99.2 F 72 18 115/73 100 05/11/24 06:00 98.3 F 58 L 16 116/58 100 05/11/24 04:00 98.3 F 80 18 84/55 100 05/11/24 03:26 61 18 103/59 100 05/11/24 03:03 57 L 18 97/79 05/11/24 02:57 97.7 F 58 L 18 86/48 99 05/11/24 01:38 57 L 18 101/77 100 05/11/24 01:23 54 L 86/49 99 05/11/24 01:00 57 L 74/47 98 05/10/24 23:11 97.6 F 74 18 114/65 97 05/10/24 21:45 97.8 F 54 L 18 131/82 100 Patient is awake, comfortable, no acute distress. 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 Hyponatremia, hypovolemic and improved with normal saline. Also secondary to adrenal crisis. 2. Hypokalemia, associated with decreased oral intake, improved post replacement 3. Hypokalemia, improved 5. Addisonian crisis with no clear cut etiology identified. Maintained on Cortef and Florinef Plan: Saline was held this morning due to rapid increase in serum sodium level. This will be restarted now and serum sodium will be repeated this evening. Continue with Talha and Tito Repeat labs in a.m. Encourage increased oral intake. Thank you for the consultation. We will continue to follow the patient with you during her hospitalization.
--- NOTE | 2024-05-11 20:56 | HP ---
HISTORY AND PHYSICAL CHIEF COMPLAINT: Change in mental status, confusion, and vomiting. HISTORY OF PRESENT ILLNESS: This is a 43-year-old woman with a past medical history of Elmer disease, who was not taking medicine for the last couple of days and the patient was having generalized pain, confusion, vomiting, and change in mental status. The patient was thought to be in adrenal crisis, and the patient was started on IV Solu-Cortef. The patient is feeling better. There is no history of any fever, rigors, or chills at this time. The white count is 7.1, sodium was 119, significantly diminished. Her magnesium was 1.3. Marijuana is detected. Viral titers negative. PAST MEDICAL HISTORY: Reviewed and includes thyroid disorders and [place]'s disease. Rest of the chart and rest of the history is noted. HOME MEDICATIONS: Ventolin. Rest of medications is noted. ALLERGIES: Bactrim. FAMILY HISTORY: No history of heart disease or strokes in the family. SOCIAL HISTORY: THC, occasional alcohol. REVIEW OF SYSTEMS: Fourteen-point review of systems negative except as mentioned earlier. PHYSICAL EXAMINATION: VITAL SIGNS: Pulse is 86, blood pressure 92/50, respirations 18. HEENT: Conjunctivae normal. NECK: No JVD. CARDIOVASCULAR: S1, S2. RESPIRATIONS: Breath sounds diminished at the bases. Bilaterally scattered rhonchi. ABDOMEN: Soft and nontender. LEGS: No edema. NERVOUS SYSTEM: Nonfocal. LABORATORY DATA: Sodium 128. Rest of the labs is noted. ASSESSMENT: 1. Acute adrenal crisis of undetermined etiology, possibly because of noncompliance. 2. Hypoglycemia. 3. Hypomagnesemia. 4. Hypokalemia. 5. History of hypothyroidism. 6. Anxiety. 7. Multiple complex medical issues. 8. Chronic hypertension. RECOMMENDATIONS AND DISCUSSION: This 43-year-old woman presented with multiple complex medical issues. We will monitor the patient closely. I recommend to continue the current medications, continue symptomatic treatment. Otherwise, continue with IV hydrocortisone, IV fluids, increase diet, increase ambulation. Closely follow with multiple consultants. Guarded prognosis. Further recommendations to follow. MMODL / IJN: [id number] /
[2024-05-12] MEDS: LEVOTHYROXINE 75 MCG TAB PO SCH (06:57)
[2024-05-12 07:01] VITALS: TEMP 97.6
[2024-05-12 07:42] LABS: AST 20 U/L (14-36); African American GFR (CKD) >90 (>60 ml/min/1.73 sqM); Albumin 3.7 g/dL (3.5-5.0); Alkaline Phosphatase 58 U/L (38-126); Anion Gap 10 mmol/L; Blood Urea Nitrogen 7 mg/dL (7-17); Calcium 8.9 mg/dL (8.4-10.2); Carbon Dioxide 22 mmol/L (22-30); Chloride 101 mmol/L (98-107); Glucose 117 mg/dL (74-99); Non-African American GFR(CKD) >90 (>60 ml/min/1.73 sqM); Potassium 3.6 mmol/L (3.5-5.1); Sodium 133 mmol/L (137-145); Total Bilirubin 0.6 mg/dL (0.2-1.3); Total Protein 6.1 g/dL (6.3-8.2)
[2024-05-12 07:56] LABS: ALT 22 U/L (4-34)
[2024-05-12 08:01] LABS: Basophils % (A) 0 %; Eosinophils # (A) 0.1 k/uL (0-0.7); Eosinophils % (A) 2 %; HCT 35.3 % (34.0-46.0); HGB 11.7 gm/dL (11.4-16.0); Lymphocytes # (A) 2.6 k/uL (1.0-4.8); Lymphocytes % (A) 42 %; MCH 28.7 pg (25.0-35.0); MCHC 33.1 g/dL (31.0-37.0); MCV 86.6 fL (80.0-100.0); Mean Platelet Volume 7.7; Monocytes # (A) 0.4 k/uL (0-1.0); Monocytes % (A) 6 %; Neutrophils % (A) 48 %; Platelet Count 245 k/uL (150-450); RBC 4.07 m/uL (3.80-5.40); WBC 6.2 k/uL (3.8-10.6)
[2024-05-12 11:06] VITALS: RESP 16
--- NOTE | 2024-05-12 14:16 | P.PN ---
Subjective Progress Note Date: 05/12/24 This is a 43-year-old female with history of chronic adrenal insufficiency/Elmer's disease, patient presented to the hospital last night with 1 day history of feeling weak, generalized aches and pains, not feeling well, with intermittent episodes of nausea and vomiting. Not certain what triggered this event, apparently the patient has not been compliant with her medications/hydrocortisone, on her initial evaluation in the ER, patient was noted to be hypotensive, required significant fluid boluses but did not require placement on norepinephrine. Patient had negative drug screen except positive for marijuana. Patient was noted to have profound hyponatremia, sodium as low as 119, potassium was 3.3, patient was also noted to have slight anion gap metabolic acidosis ranging between 13-16. Patient received stress doses of hydrocortisone she also received multiple fluid boluses upon her initial arrival, and she was supposed to be admitted to the ICU. However when I evaluated the patient in the morning, her labs were showing significant improvement, her blood pressure was noted to be stable, patient is already on high doses/stress dose of hydrocortisone, her T4 and TSH were noted to be no rmal, hence I recommended that the patient remains on stress doses of hydrocortisone, and the patient could be admitted to the floor. She will likely be admitted to 3 S. Patient had viral screen which all came back negative, and based on her clinical history no clear-cut evidence of infection. Patient is now on hydrocortisone at 100 mg IV push every 8 hours she is also on Florinef 0.3 mg p.o. daily, and back on her usual levothyroxine dose. The patient is seen today May 12, 2024 in follow-up in the emergency department. She is sitting up on the stretcher. Awake and alert in no acute di stress. Doing quite a bit better today compared to yesterday. She is maintaining O2 saturations in the 90s on room air. She has been afebrile. Hemodynamically stable. White count 6.2. Hemoglobin 11.7. Platelets 245. Sodium 133. Potassium 3.6. Bicarb 22. BUN 7. Creatinine 0.60. Glucose 117. She remains on Solu-Cortef at 100 mg IV every 8 hours. Remains on Synthroid. Remains on Florinef. Normal saline at 75 mL/h. Objective - Vital Signs Vital signs: Vital Signs Temp 97.6 F 05/12/24 07:00 Pulse 85 05/12/24 11:00 Resp 16 05/12/24 11:00 BP 95/55 05/12/24 11:00 Pulse Ox 98 05/12/24 11:00 FiO2 - Exam GENERAL EXAM: Alert, disheveled 43-year-old female, on room air, comfortable in no apparent distress. HEAD: Normocephalic. EYES: Normal reaction of pupils, equal size. NOSE: Clear with pink turbinates. THROAT: No erythema or exudates. NECK: No masses, no JVD. CHEST: No chest wall deformity. LUNGS: Equal air entry with no crackles, wheeze, rhonchi or dullness. CVS: S1 and S2 normal with no audible murmur, regular rhythm. ABDOMEN: No hepatosplenomegaly, normal bowel sounds, no guarding or rigidity. SPINE: No scoliosis or deformity SKIN: No rashes CENTRAL NERVOUS SYSTEM: No focal deficits, tone is normal in all 4 extremities. EXTREMITIES: There is no peripheral edema. No clubbing, no cyanosis. Peripheral pulses are intact. - Labs CBC & Chem 7: 05/12/24 06:49 05/12/24 06:49 Labs: Abnormal Lab Results - Last 24 Hours (Table) 05/12/24 Range/Units 06:49 Sodium 133 L (137-145) mmol/L Glucose 117 H (74-99) mg/dL Total Protein 6.1 L (6.3-8.2) g/dL Assessment and Plan Assessment: Acute addisonian crisis Hyponatremia secondary to adrenal insufficiency, improving Hypoglycemia secondary to adrenal insufficiency, improving History of [place] disease History of hypothyroidism History of depression/anxiety History of GERD Plan: The patient was seen and evaluated Labs and medications reviewed Continue normal saline at 75 mL/h Continue Solu-Cortef Continue Florinef Continue Synthroid Stable and on room air Downgraded to the regular medical floor Nephrology is following closely We will continue to follow I have personally seen and examined the patient, performed the documentation and the assessment and plan as written. Number of minutes spent on the visit: 10 Dictation was produced using [employer] dictation software. Please excuse any grammatical, word or spelling errors.
[2024-05-12 15:13] VITALS: BP 130/85; PULSE 68
--- NOTE | 2024-05-12 18:06 | P.PN ---
Subjective Patient is seen for follow-up for hyponatremia which was mostly hypovolemic associated with addisonian crisis. Improved significantly with IV hydration. Patient states she is feeling better. Serum sodium is 133 today. 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 Hyponatremia, hypovolemic and improved with normal saline. Also secondary to adrenal crisis. Improved with serum sodium at 133 today 2. Hypokalemia, associated with decreased oral intake, improved post replacement 3. Hypokalemia, improved 5. Addisonian crisis with no clear cut etiology identified. Maintained on Cortef and Florinef Plan: Patient is stable for discharge from nephrology standpoint.
[2024-05-13] MEDS ORDERED: LEVOTHYROXINE 75 MCG TAB PO SCH (06:30)
--- NOTE | 2024-05-14 15:04 | P.DS ---
Providers Date of admission: 05/11/24 00:35 Expected date of discharge: 05/12/24 Attending physician: Summer Tom Consults: 05/11/24 00:35 Consult Physician Urgent Consulting Provider: Jaylyn Avalos Consult Reason/Comments: adrenal crisis Do you want consulting provider notified?: Already Contacted Consult Physician Urgent Consulting Provider: Nabila Thompson Consult Reason/Comments: Adrenal crisis Do you want consulting provider notified?: Yes Primary care physician: Tom Akins [facility] Course: Final diagnosis Acute adrenal crisis of undetermined etiology, possibly due to noncompliance or acute viral illness with nausea and vomiting Hypoglycemia secondary to vomiting Hypomagnesemia secondary to GI loss History of hypothyroidism Anxiety/depression Chronic hypertension THC use GI prophylaxis DVT prophylaxis Full code Discharge disposition Patient is being discharged in a stable condition with guarded prognosis to home. Patient will follow-up with Dr. Akins in the outpatient setting upon discharge. Patient is to continue with current medications as mentioned below and close outpatient follow-up with endocrine as scheduled. Total time taken is greater than 35 minutes. Hospital course This is a 43-year-old female who was recently admitted with significant history of [place]'s disease was unable to take her medication due to having vomiting and not feeling well with concerns of possible [place]'s crisis. Patient was started on IV Solu-Cortef with multiple consultations following showing significant improvement and would like to go home. Patient sodium improved as well as electrolyte abnormalities. Patient has been instructed to continue with higher dose Cortef and Florinef taper and close outpatient follow-up with primary care provider as well as endocrine outpatient. Please refer to other consultation notes for further HPI. Currently no reports of chest pain, shortness of breath, or palpitations. Patient is afebrile. No reports of nausea or vomiting and patient is tolerating diet. Patient will be discharged home today. Guarded prognosis Physical exam: Gen: This is a 43-year-old female who is awake, alert and oriented x 3, well- developed, thin built HEENT: Head is atraumatic, normocephalic. Pupils equal, round. Sclerae is anicteric. NECK: Supple. No JVD. No lymphadenopathy. No thyromegaly. LUNGS: Diminished breath sounds bilaterally otherwise clear to auscultation. No wheezes or rhonchi. No intercostal retractions. HEART: Regular rate and rhythm. No murmur. ABDOMEN: Soft. Thin. Bowel sounds are present. No masses. No tenderness. EXTREMITIES: No pedal edema. No calf tenderness. NEUROLOGICAL: Patient is awake, alert and oriented x3. Cranial nerves 2 through 12 are grossly intact. Please refer to medication reconciliation sheet for a list of medications. The impression and plan of care has been dictated by Trisha Art, Nurse Practitioner as directed. Dr. Negro MD I have performed a history and examination and MDM of this patient, discussed the same with the dictator, and agree with the dictator's assessment and plan as written ,documented as a scribe. Based on total visit time, I have performed more than 50% of the visit. Patient Condition at Discharge: Fair Plan - Discharge Summary New Discharge Prescriptions: New Fludrocortisone [Florinef] 0.3 mg PO DAILY #90 tab Hydrocortisone 20 mg PO BID #90 tablet Acetaminophen Tab [Tylenol] 650 mg PO Q4HR PRN tab PRN Reason: Fever And/Or Mild Pain Continue Famotidine [Pepcid] 20 mg PO BID PRN #60 tab PRN Reason: Heartburn Levothyroxine Sodium [Synthroid] 75 mcg PO Q48H Levothyroxine Sodium [Synthroid] 150 mcg PO Q48H Albuterol Inhaler [Ventolin Hfa Inhaler] 2 puff INHALATION RT-Q6H PRN PRN Reason: Shortness Of Breath Discontinued Fludrocortisone [Florinef] 0.15 mg PO DAILY Hydrocortisone [Cortef] 10 mg PO DAILY Hydrocortisone 5 mg PO DAILY@1400 Discharge Medication List Famotidine [Pepcid] 20 mg PO BID PRN #60 tab 04/25/18 [Rx] Albuterol Inhaler [Ventolin Hfa Inhaler] 2 puff INHALATION RT-Q6H PRN 05/11/24 [History] Levothyroxine Sodium [Synthroid] 75 mcg PO Q48H 05/11/24 [History] Levothyroxine Sodium [Synthroid] 150 mcg PO Q48H 05/11/24 [History] Acetaminophen Tab [Tylenol] 650 mg PO Q4HR PRN tab 05/12/24 [Rx] Fludrocortisone [Florinef] 0.3 mg PO DAILY #90 tab 05/12/24 [Rx] Hydrocortisone 20 mg PO BID #90 tablet 05/12/24 [Rx] Follow up Appointment(s)/Referral(s): [facility] [[facility]STA[facility]] - 1 Week (Contact primary care office to become established with a provider. [facility] for [facility] residents with no insurance or who are under insured. ) Tom Akins MD [Primary Care Provider] - 1-2 days Aj Mondragon MD [REFERRING] - 1 Week Ambulatory/Diagnostic Orders: Complete Blood Count w/diff [LAB.AMB] Time Frame: 3 Days, Location: None Selected Activity/Diet/Wound Care/Special Instructions: Activity limited until follow-up Follow-up with primary care provider on discharge Continue with Cortef 20 mg twice daily for 3 days, then 20 mg during the day and 10 mg at night for 3 days, then 10 mg twice daily for 3 days, then 10 mg during the day and 5 mg at night Strongly recommend endocrine follow-up in the next 1 to 2 weeks Continue Florinef 0.3 mg daily Repeat labs Discharge Disposition: HOME SELF-CARE
== END 2024-05-12 15:54 | disposition home or self-care (01) | DRG 644 ==
LOC: EC 21:44 → 2SICU 05-11 00:35 → 3SCARD 05-11 10:01 → 5NMEDONC 05-12 13:08
PROVIDERS: ADMIT Hospitalist; ATTEND Hospitalist
DX: E27.2 Addisonian crisis (principal); E87.1 Hypo-osmolality and hyponatremia; E03.9 Hypothyroidism, unspecified; I10 Essential (primary) hypertension; F32.A Depression, unspecified; E27.1 Primary adrenocortical insufficiency; B34.9 Viral infection, unspecified; Z11.52 Encounter for screening for COVID-19; Z79.890 Hormone replacement therapy; E83.42 Hypomagnesemia; E86.1 Hypovolemia; E87.6 Hypokalemia; F41.9 Anxiety disorder, unspecified; Z82.49 Family history of ischemic heart disease and other diseases of the circulatory system; Z91.199 Patient's noncompliance with other medical treatment and regimen due to unspecified reason; Z88.1 Allergy status to other antibiotic agents; Z88.2 Allergy status to sulfonamides
CPT/HCPCS: 36415; 70450; 71046; 80053; 80306; 81001; 81025; 83605; 83735; 84439; 84443; 84484; 85025; 85610; 85730; 87636; 93005; 96361; 96365; 96366; 96368; 96375; 96376; 99291